=== PATIENT | female | born 1990 | race African-American/Black ===

== ENCOUNTER 2019-12-28 14:21 | Outpatient (REF) | payer OTHER, SELFPAY | END 2019-12-28 14:22 | disposition home or self-care (01) | LOC: HO.LAB 14:21 | PROVIDERS: Visit Provider Internal Medicine | DX: Z20.828 Contact with and (suspected) exposure to other viral communicable diseases (principal) | CPT/HCPCS: 87635 ==

== ENCOUNTER 2020-02-11 09:40 | Outpatient (REF) | payer OTHER, SELFPAY | END 2020-02-11 09:41 | disposition home or self-care (01) | LOC: HO.LAB 09:40 | PROVIDERS: Visit Provider Internal Medicine | DX: Z20.828 Contact with and (suspected) exposure to other viral communicable diseases (principal) | CPT/HCPCS: C9803; U0003 ==

== ENCOUNTER 2020-03-21 16:20 | Emergency (ER) | payer OTHER, SELFPAY ==
--- NOTE | 2020-03-21 | XR_ITS ---
EXAMINATION: XR KNEE, RIGHT CLINICAL INFORMATION: Injury. COMPARISON: None TECHNIQUE: Four views of the right knee. FINDINGS: Bones and soft tissues are normal. No fracture or joint effusion. Alignment is anatomic. Joint spaces are well maintained. No abnormal soft tissue calcification. XR/XR knee RT 4V IMPRESSION: Normal right knee.
[2020-03-21 16:35] VITALS: PULSE 91; RESP 16; TEMP 36.7; O2SAT 97; BMI 30.2
--- NOTE | 2020-03-21 19:54 | ED.LOWEXIN ---
HPI - Extremity Injury (Lower) General Chief Complaint: Extremity Injury, Lower Stated Complaint: FALL Time Seen by Provider: 03/21/20 19:54 History of Present Illness HPI Narrative: Patient complains of right knee pain since twisting it yesterday, he was she was fooling around with her and tried to lift him on her back and squat and felt a pain in her right knee, she did not fall down and there is no other injury no other complaints Related Data Previous Rx's Medication Instructions Recorded ibuprofen 600 mg PO Q6H PRN #20 tab 03/21/20 Allergies Allergy/AdvReac Type Severity Reaction Status Date / Time No Known Allergies Allergy Verified 03/21/20 19:05 [No Known Allergies*] Review of Systems Review of Systems: Positive for right knee pain Negatives are no numbness no weakness no paresthesias no dizziness no confusion no head injury no neck pain no back pain PMFSH Past Medical History Source: nursing notes reviewed Medical History (Updated 03/21/20 @ 20:06 by BIJU Jimenez) High cholesterol History of gastrectomy Social History Social History Smoked in Last 30 Days: No Use of substances other than those prescribed or required for medical reasons: No Advance Directives: No Advance Directives Information Provided: No Physical Exam Vital Signs: Vital Signs: Last Vital Signs Temp 98.1 F 03/21/20 16:35 Pulse 91 03/21/20 16:35 Resp 16 03/21/20 16:35 Pulse Ox 97 03/21/20 16:35 Body Mass Index 30.2 Patient is A&O x3, comfortable no acute distress Head is normocephalic atraumatic Neck is supple Respiratory no distress not Extremities the right knee is mildly swollen with medial tenderness, it extends to 180 and flexes past 90, she can walk with a limp, neurovascular intact distal no effusion no ligamentous laxity, quadriceps and patellar tendons appear intact, skin is normal no redness no warmth Neuro no focal deficit Skin no rash Course Course Course Narrative: Right knee x-ray was normal Patient is discharged to follow-up with orthopedics as needed Discharge Plan Discharge Clinical Impression: Right knee sprain Qualifiers: Encounter type: initial encounter Involved ligament of knee: unspecified ligament Qualified Code(s): S83.91XA - Sprain of unspecified site of right knee, initial encounter Patient Disposition: Home, Self-Care Additional Instructions: X-ray was normal Some sprains get better on their own and others do not so you may need to follow with orthopedist Apply ice Motrin as needed, return any concerns Prescriptions: New ibuprofen 600 mg tablet 600 mg PO Q6H PRN (Reason: pain) Qty: 20 RF: 0 Referrals: Jose A Pemberton MD [Physician] - 10 days (Right knee sprain)
--- NOTE | 2020-03-21 20:03 | PC.NURSE ---
NIMISHA WRAP APPLIED.
== END 2020-03-21 20:25 | disposition home or self-care (01) ==
PROVIDERS: Emergency Provider Emergency Medicine
DX: S83.91XA Sprain of unspecified site of right knee, initial encounter (principal); M25.561 Pain in right knee; X50.1XXA Overexertion from prolonged static or awkward postures, initial encounter; Y93.01 Activity, walking, marching and hiking; Y92.009 Unspecified place in unspecified non-institutional (private) residence as the place of occurrence of the external cause; Y99.9 Unspecified external cause status
CPT/HCPCS: 73564; 99283; 99284

== ENCOUNTER 2020-04-11 16:56 | Outpatient (REF) | payer OTHER, SELFPAY | END 2020-04-11 16:57 | disposition home or self-care (01) | LOC: HO.LAB 16:56 | PROVIDERS: Visit Provider Internal Medicine | DX: Z20.822 Contact with and (suspected) exposure to COVID-19 (principal) | CPT/HCPCS: 36415; C9803; U0003 ==

== ENCOUNTER 2020-09-22 07:19 | Outpatient (REF) | payer OTHER, SELFPAY ==
[2020-09-22 11:43] LABS: Hematocrit 38.3 % (37-47); Hemoglobin 12.4 g/dl (12.0-16.0); Mean Corpuscular HGB Conc 32.4 g/dl (31.0-35.0); Mean Corpuscular Hemoglobin 28.1 pg (27.0-33.0); Mean Corpuscular Volume 86.8 fL (80-98); Mean Platelet Volume 10.6 fL (9.4-12.3); Platelet Count 283 X10*3/uL (160-400); Red Blood Count 4.41 X10*6/uL (4.20-5.50); Red Cell Distribution Width 12.8 % (11.0-16.0); White Blood Count 5.3 X10*3/uL (4.8-10.8)
[2020-09-22 12:23] LABS: TSH reflex Free T4 1.15 uIU/mL (0.32-4.0)
[2020-09-22 12:24] LABS: Alanine Aminotransferase 13 U/L (0-31); Albumin Level 3.7 g/dL (3.5-5.0); Alkaline Phosphatase 50 U/L (39-117); Anion Gap 12 (12-20); Aspartate Amino Transferase 15 U/L (5-31); Bilirubin Total 0.6 mg/dL (0.0-1.0); Blood Urea Nitrogen 7 mg/dL (9-16); Calcium 8.3 mg/dL (8.4-10.2); Carbon Dioxide 25 mmol/L (22-29); Chloride 106 mmol/L (96-108); Cholesterol 271 mg/dL; Estimated Glomerular Filt Rate > 60; Glucose Fasting 81 mg/dL (60-99); HDL Cholesterol 50 mg/dL; Iron 123 mcg/dL (30-160); LDL Cholesterol Calculated 192 mg/dl; Percent Iron Saturation 31 % (15-50); Sodium 139 mmol/L (135-145); Total Iron Binding Capacity 393 mcg/dL (228-428); Total Protein 6.5 g/dL (6.5-8.0); Triglycerides 147 mg/dL; Unsaturated Iron Binding 270 ug/dL
== END 2020-09-22 07:20 | disposition home or self-care (01) ==
LOC: HO.HMGCLDS 07:19
PROVIDERS: PCP Internal Medicine; Visit Provider Internal Medicine
DX: Z00.00 Encounter for general adult medical examination without abnormal findings (principal); K21.9 Gastro-esophageal reflux disease without esophagitis
CPT/HCPCS: 36415; 80053; 80061; 83540; 84443; 85027

== ENCOUNTER 2021-05-25 10:45 | Outpatient (REF) | payer OTHER, SELFPAY ==
[2021-05-25 13:10] LABS: TSH reflex Free T4 1.49 uIU/mL (0.32-4.0)
[2021-05-25 13:33] LABS: Folate 5.5 ng/mL (> or = 4.0); Vitamin B12 260 pg/mL (200-900)
[2021-05-28 21:36] LABS: Transglutaminase Ab IgG <1.0 U/mL; Transglutaminase IgA <1.0 U/mL
[2021-05-29 07:07] LABS: Vitamin D 25-OH, D2 <4 ng/mL; Vitamin D 25-OH, D3 8 ng/mL; Vitamin D 25-OH, Total 8 ng/mL (30-100)
== END 2021-05-25 10:46 | disposition home or self-care (01) ==
LOC: HO.LAB 10:45
PROVIDERS: PCP Internal Medicine; Referring Provider Internal Medicine; Visit Provider Nurse Practitioner Family
DX: R10.11 Right upper quadrant pain (principal); R19.7 Diarrhea, unspecified; R14.0 Abdominal distension (gaseous); E55.9 Vitamin D deficiency, unspecified; K21.9 Gastro-esophageal reflux disease without esophagitis; K58.1 Irritable bowel syndrome with constipation
CPT/HCPCS: 36415; 82306; 82607; 82746; 84443; 86364; 99202

== ENCOUNTER 2021-06-26 08:41 | Outpatient (REF) | payer OTHER, SELFPAY | END 2021-06-26 08:42 | disposition home or self-care (01) | LOC: HO.LNP 08:41 | PROVIDERS: Visit Provider Nurse Practitioner Family | DX: K21.9 Gastro-esophageal reflux disease without esophagitis (principal) | CPT/HCPCS: 87338 ==

== ENCOUNTER → 2021-07-06 14:42 | Outpatient (BNVA) | payer OTHER, SELFPAY | PROVIDERS: PCP Internal Medicine; Referring Provider Internal Medicine; Visit Provider Nurse Practitioner Family | DX: K21.9 Gastro-esophageal reflux disease without esophagitis (principal); R10.13 Epigastric pain; Z90.3 Acquired absence of stomach [part of] | CPT/HCPCS: 99212 ==

== ENCOUNTER → 2021-07-26 13:01 | Outpatient (BNVA) | payer OTHER, SELFPAY | PROVIDERS: PCP Internal Medicine; Referring Provider Internal Medicine; Visit Provider Physician Assistant | DX: K21.9 Gastro-esophageal reflux disease without esophagitis (principal); E66.9 Obesity, unspecified; Z68.36 Body mass index [BMI] 36.0-36.9, adult; Z90.3 Acquired absence of stomach [part of] | CPT/HCPCS: 99202 ==

== ENCOUNTER 2021-07-27 12:13 | Day surgery (SDC) | payer OTHER, SELFPAY ==
--- NOTE | 2021-07-26 13:54 | HO.ANESPROP2 ---
Documented by User: Krissy Jj NP 07/26/21 13:54 HPI - Anesthesia Eval Consult details Narrative: 31yo F for Upper Endoscopy [facility]/p gastric [facility] Active Problems Active Problems: All Active Problems (Updated 07/26/21 @ 13:53 by Karlee Levi PA-C) Obesity (Acute) GERD (gastroesophageal reflux disease) (Acute) Annual physical exam (Acute) History of sleeve gastrectomy (Acute) Past Medical History Medical History Annual physical exam GERD (gastroesophageal reflux disease) High cholesterol History of gastrectomy Family History Family History Mother HTN (hypertension) Father Cancer Heart problem Diabetes Surgical History Surgical History History of sleeve gastrectomy Social History 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 If so, by whom?: No Are you DNR?: No Advance Directives: No Advance Directives Information Provided: Yes Recently lost weight without trying: No Nutrition Risks: No Nutritional Risk Patient : No Meds Allergies Allergy/AdvReac Type Severity Reaction Status Date / Time No Known Allergies Allergy Verified 07/06/21 14:59 [No Known Allergies*] Exam Exam Date and Time: July 26, 2021 1354 Assessment and Plan Assessment Anesthesia Assessment: Chart Reviewed Documented by User: Igor Gillespie MD 07/27/21 12:42 [facility] Past Medical History Medical History Annual physical exam GERD (gastroesophageal reflux disease) High cholesterol History of gastrectomy Patient : No Family History Family History Mother HTN (hypertension) Father Cancer Heart problem Diabetes Family history of problems with anesthesia: No Surgical History Surgical History History of sleeve gastrectomy History of Problems with Anesthesia: No Social History 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 If so, by whom?: No Are you DNR?: No Advance Directives: No Advance Directives Information Provided: Yes Recently lost weight without trying: No Nutrition Risks: No Nutritional Risk Patient : No Meds Allergies Allergy/AdvReac Type Severity Reaction Status Date / Time No Known Allergies Allergy Verified 07/06/21 14:59 [No Known Allergies*] Active Medications: nexium, sucralfate Exam Airway Mallampati Class: II TM Dist: >3cm Neck ROM: Full Loose/Missing/Broken Teeth: No Heart: ok Lungs: ok Assessment and Plan Final Anesthetic Review Family History of Problems with Anesthesia: No History of Problems with Anesthesia: No NPO: Yes ASA Class: III (Severe reflux) Final Preanesthetic Review: No Changes in Pt Med Stat, Meds/Allgs Chart Reviewed, Consent Obtained/Reviewed and Anes Risks/Benef Reviewed Patient Risk: Intermediate Procedure Risk: Intermediate Anesthetic Plan Anesthetic Plan: MAC: and Agree w/ Assess. and Plan Disposition: Standard PACU
[2021-07-27 12:12] VITALS: BMI 35.9
[2021-07-27 12:27] VITALS: BP 108/56; PULSE 83; RESP 18; TEMP 36.6; O2SAT 96
[2021-07-27] MEDS: Lactated Ringers 1,000 ML 100 ML IVCONT (12:40)
[2021-07-27 12:41] LABS: UPreg QC Valid YES; Urine Pregnancy NEGATIVE (NEGATIVE)
--- NOTE | 2021-07-27 13:02 | MHC.SHP ---
Pre-Procedural Eval Section A Date of Service: 07/27/21 The patient is an INPATIENT: No The History & Physical has been completed within 30 days and I have reviewed it.: Yes Section B Chief Complaint: reflux disease Details of Present Illness: GERD, epigastric pain Allergies: Allergies Allergy/AdvReac Type Severity Reaction Status Date / Time No Known Allergies Allergy Verified 07/06/21 14:59 [No Known Allergies*] Exam Surgical H&P Exam: Normal: Heart, Normal: Lungs and Normal: Extremities Plan Diagnosis/Plan: Unchanged I have reviewed the history and physical and performed a pertinent physical examination on my patient. No changes have occurred unless specified.
--- NOTE | 2021-07-27 13:08 | P.OP_ITS ---
Operative Note Operative Note Date of Service: 07/27/21 Narrative: Pre-op diagnosis: GERD, upper abdominal pain, status post Gastric sleeve in 2016 in [place] Post-op diagnosis:?other (Esophagitis, hiatal hernia, gastritis, status post Gastric sleeve surgery) Procedure: FLEXIBLE TRANSORAL UPPER GASTROINTESTINAL ENDOSCOPY WITH BIOPSIES Consent:?Indications for the procedure and potential complications of bleeding, perforation, reaction to medications and missed diagnosis were discussed with the patient and informed consent was obtained. Instrument:?Olympus GIF H 190 mid size upper endoscope Monitoring: Vital signs and clinical assessment, continuous EKG monitoring, Pulse oximetry, Carbon Dioxide monitoring and blood pressure monitoring were done throughout the procedure. Procedure:?The patient was placed in the left lateral decubitis position and pre-procedure medications were administered and a bite block was placed. The endoscope was inserted into the mouth and advanced under direct vision to the third part of duodenum. A careful inspection was made as the upper endoscope was withdrawn including a retroflexed examination of the proximal stomach; Findings and interventions are described below. Findings: Larynx:? Normal Esophagus: Presence of bile noted in the distal esophagus which was suctioned.? GE junction at 30 cms, small hiatal hernia 30 to 32 cms. Multiple 1-2 cms linear erosions at GE junction. No Massey's. Stomach: Normal gastric pouch. ? Mild gastric antral erythema. Biopsies were obtained. Grade 2 flap valve on retroflexed examination of the cardia. Duodenum: Normal bulb and descending duodenum Intervention: Biopsies as noted above Impression and Post Procedure Diagnosis: Endoscopy Findings: ESOPHAGUS: Presence of bile noted in the distal esophagus which was suctioned.? GE junction at 30 cms, small hiatal hernia 30 to 32 cms. Multiple 1-2 cms linear erosions at GE junction. No Massey's. STOMACH: Normal gastric pouch. ? Mild gastric antral erythema. Biopsies were obtained. Grade 2 flap valve on retroflexed examination of the cardia. Plan:? Await pathology results Patient has an appointment on 08/15/21 in the GI Clinic with Aiyana Bernstein FNP- [place] . Above findings were reviewed with the patient and GERD and Hiatal Hernia hand outs were given in the discharge area. Pt was advised to increase sucralfate to three times a day for bile reflux. COMPLICATONS OF SLEEVE GASTRECTOMY (FROM UPTODATE): Reflux???Gastroesophageal reflux after SG presents with classic symptoms such as burning pain, heartburn, and regurgitation. It can occur as an early and late complication. The first-line treatment is antireflux medical therapy. GERD unresponsive to antireflux medical therapy with no clear anatomic abnormalities, such as stoma stenosis or a hiatal hernia, can be effectively treated by conversion to RYGB Surgeon: Vito Chanel MD Anesthesia:?MAC (Dr Ramos) Was an Lawn And Garden Technician used for this Procedure?:?Yes Lawn And Garden Technician:?Anita Verduzco Estimated blood loss (mL):?0 Pathology:?other (A. GASTRIC BIOPSIES) Condition:?stable Disposition:?PACU
[2021-07-27 13:30] VITALS: BP 96/45; PULSE 71; RESP 16; TEMP 36.1; O2SAT 97
[2021-07-27 13:45] VITALS: BP 104/61; PULSE 67; RESP 16; TEMP 36.1; O2SAT 97
[2021-07-27 13:57] VITALS: BP 104/55; PULSE 77; RESP 16; TEMP 36.2; O2SAT 100
== END 2021-07-27 14:30 | disposition home or self-care (01) ==
PROVIDERS: Nurse Practitioner; PCP Internal Medicine; Visit Provider Internal Medicine Gastroenterology
PROC: 0DJ08ZZ Inspection of Upper Intestinal Tract, Via Natural or Artificial Opening Endoscopic (ICD-10-PCS; CPT 43235; principal; 2021-07-27 13:30)
DX: K21.9 Gastro-esophageal reflux disease without esophagitis (principal); K29.50 Unspecified chronic gastritis without bleeding; K20.80 Other esophagitis without bleeding; K44.9 Diaphragmatic hernia without obstruction or gangrene; E78.00 Pure hypercholesterolemia, unspecified; Z79.899 Other long term (current) drug therapy; Z90.3 Acquired absence of stomach [part of]; Z98.84 Bariatric surgery status
CPT/HCPCS: 43239; 81025; 88305; 88342; J2250; J3010

== ENCOUNTER 2021-08-13 09:18 | Outpatient (REF) | payer OTHER, SELFPAY ==
--- NOTE | ~2021-08-13 | FL_ITS ---
EXAMINATION: XR FLUOROSCOPY UPPER GI WITH AIR CLINICAL INFORMATION: Gastroesophageal reflux disease with esophagitis. COMPARISON: None TECHNIQUE: Routine upper GI air-contrast study was performed in upright and lying position. FINDINGS: Following oral administration of thick barium and effervescent granules there is normal propagation of bolus from the oral cavity through the pharynx, esophagus into stomach without any evidence of obstruction, narrowing or stricture. On placing patient supine and prone, the is reducible moderate stool hiatal hernia with significant gastroesophageal reflux into proximal esophagus and pharynx. The mucosal pattern of esophagus, stomach and the duodenal bulb and the sweep is normal. FLUOROSCOPY TIME: 1.8 minutes DOSE AREA PRODUCT: 32.8-3 uGy-m2 (microgray-meter squared) FL/FL upper GI w air IMPRESSION: Moderate reducible hiatal hernia with gastroesophageal reflux. Rest of the upper GI exam is unremarkable.
== END 2021-08-13 09:19 | disposition home or self-care (01) ==
LOC: HO.XRAY 09:18
PROVIDERS: Visit Provider Physician Assistant
DX: K21.9 Gastro-esophageal reflux disease without esophagitis (principal)
CPT/HCPCS: 74246

== ENCOUNTER → 2021-08-15 15:42 | Outpatient (BNVA) | payer OTHER, SELFPAY | PROVIDERS: PCP Internal Medicine; Referring Provider Internal Medicine; Visit Provider Nurse Practitioner Family | DX: K44.9 Diaphragmatic hernia without obstruction or gangrene (principal); K21.9 Gastro-esophageal reflux disease without esophagitis; K59.04 Chronic idiopathic constipation | CPT/HCPCS: 99212 ==

== ENCOUNTER → 2021-08-23 14:13 | Outpatient (BNVA) | payer OTHER, SELFPAY | PROVIDERS: PCP Internal Medicine; Referring Provider Internal Medicine; Visit Provider Physician Assistant | DX: E66.9 Obesity, unspecified (principal); Z68.35 Body mass index [BMI] 35.0-35.9, adult; Z98.84 Bariatric surgery status | CPT/HCPCS: 99212 ==

== ENCOUNTER 2021-09-04 09:03 | Day surgery (SDC) | payer OTHER, SELFPAY ==
--- NOTE | 2021-09-03 19:10 | MHC.SHP ---
Pre-Procedural Eval Section A Date of Service: 09/03/21 The patient is an INPATIENT: No The History & Physical has been completed within 30 days and I have reviewed it.: Yes Section B Chief Complaint: surgery status Relevant Family History (Specify if Yes): No Relevant Social History: None Present Medications: None Medical History: No relevant PMH History of Previous Operations: Relevant previous surgery/procedure and date(s) (lap sleeve gastrectomy) Allergies: Allergies Allergy/AdvReac Type Severity Reaction Status Date / Time No Known Allergies Allergy Verified 08/23/21 14:19 [No Known Allergies*] Review of Systems Sugical H&P ROS: Negative: Constitution, Cardiovascular, Respiratory, Neurological, Psychiatric, Hem-Onc, Allergic/Immunologic, Gastrointestinal, Genitourinary, Musculoskeletal, Integumentary, Endocrine and Eyes/Ears/Nose/Throat Exam Surgical H&P Exam: Normal: HEENT, Normal: Heart, Normal: Lungs, Normal: Extremities, Normal: Abdomen, Normal: Skin and Normal: Neurological Plan Diagnosis/Plan: Unchanged (EGD to assess GERD following sleeve gastrectomy. Risks of bleeding and perforation were discussed) I have reviewed the history and physical and performed a pertinent physical examination on my patient. No changes have occurred unless specified.
--- NOTE | 2021-09-04 09:09 | P.CONAN_ITS ---
[facility] Active Problems Active Problems: All Active Problems (Updated 08/13/21 @ 16:05 by Karlee Levi PA-C) Hiatal hernia (Acute) Obesity (Acute) GERD (gastroesophageal reflux disease) (Acute) Annual physical exam (Acute) History of sleeve gastrectomy (Acute) Past Medical History Medical History High cholesterol History of gastrectomy Family History Family History Mother HTN (hypertension) Father Cancer Heart problem Diabetes Family history of problems with anesthesia: No Surgical History Surgical History History of esophagogastroduodenoscopy History of Problems with Anesthesia: No Social History Social History 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:: , 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, 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 Alcohol intake frequency: holidays/special occasions only Alcohol type: beer Patient Tobacco Use Status: Never used Tobacco Use of substances other than those prescribed or required for medical reasons: No Are you DNR?: No Advance Directives: No Advance Directives Information Provided: Yes Meds Allergies Allergy/AdvReac Type Severity Reaction Status Date / Time No Known Allergies Allergy Verified 09/04/21 09:17 [No Known Allergies*] Exam Exam Date and Time: September 04, 2021 0909 Airway Mallampati Class: II TM Dist: >3cm Neck ROM: Full Partial: Lower Loose/Missing/Broken Teeth: Yes and Lower Heart: RRR Lungs: CTA Assessment and Plan Final Anesthetic Review Family History of Problems with Anesthesia: No History of Problems with Anesthesia: No ASA Class: II Final Preanesthetic Review: Meds/Allgs Chart Reviewed, Consent Obtained/Reviewed and Anes Risks/Benef Reviewed Patient Risk: Low Procedure Risk: Intermediate Anesthetic Plan Anesthetic Plan: MAC: Disposition: Standard PACU
[2021-09-04 09:27] VITALS: BMI 35.1
[2021-09-04 09:38] LABS: UPreg QC Valid YES; Urine Pregnancy NEGATIVE (NEGATIVE)
[2021-09-04 09:43] VITALS: BP 102/60; PULSE 88; RESP 15; TEMP 36.4; O2SAT 97
--- NOTE | 2021-09-04 09:53 | PM.OP ---
Brief Operative Note Date of Service: 09/04/21 Pre-op diagnosis: GERD Post-op diagnosis: same Procedure: PROCEDURE DATE: 09/04/2021 PREOPERATIVE DIAGNOSIS: GERD, s/p sleeve gastrectomy POSTOPERATIVE DIAGNOSIS: ?Same as above. 1) esophagitis grade 4, 2) distal gastritis, 3) bile reflux PROCEDURE: [id number] with biopsies Surgeon: ?Chandu Sheth M.D.. Ph.D. Assistant Professor Of History: None ? Anesthesia: IV sedation Estimated blood loss: ?Minimal FINDINGS AND PROCEDURE: ? OPERATIVE INDICATIONS: ?The patient is a 31 year old female known to me who underwent a laparoscopic sleeve gastrectomy a few years ago in [place]. The patient had inadequate weight loss so far.? The patient has been complaining of GERD. Based on this information I recommended an upper endoscopy to evaluate the patient's symptoms. Risks and complications of the surgery were discussed with the patientin advance particularly the possibility of perforation or bleeding that may require surgical intervention. The patient understood the risks and was in agreement with the plan. ? PROCEDURE: After informed consent was obtained by the patient, the patient was ?transferred to the Operating Room and was placed in the supine position.? After successful induction of IV sedation, a mouth block was inserted and the patient was placed in the left lateral decubitus position. An upper endoscopy was performed next, the oropharynx and esophagus appeared within the normal limits. There was no hiatal hernia. The z-line was irregular with tongues of gastric mucosa protruding into the esophagus in the entire circumference. Two biopsies were obtained from the distal esophagus 2-3 cm proximal to the GE junction and two additional biopsies from the GE junction. There was bile present in the distal esophagus and in the sleeve. The sleeve was entered. There was mild to moderate proximal redundancy near the GE junction. The remaining of the sleeve had normal caliber without evidence of stenosis. There was gastritis at distal antrum. There was no stricture or ulcer. Biopsies were obtained from the proximal sleeve as well as the distal antrum. No significant bleeding was noted from any of the biopsy sites. The scope was then advanced into the duodenum which appeared to be normal as well. At that point the duodenum ?and the sleeve were decompressed and the scope was withdrawn from the patient's mouth. The patient extubated and was transferred in stable condition to the Recovery Room for further care. I was present and performed all steps of the procedure. There were no residents to assist with this case. Chandu Sheth M.D., Ph.D. Surgeon: Rambo Sheth MD Anesthesia: MAC Was an Assistant Professor Of History used for this Procedure?: No Estimated blood loss (mL): 0 IV fluids (mL): 400 Urine output (mL): 0 (No Garcia to record) Pathology: other (1) GE junction x2, 2) distal esophagus x2, 3) proximal sleeve x1, 4) antrum x1) Condition: stable Disposition: PACU
[2021-09-04 10:46] VITALS: BP 94/47; PULSE 70; RESP 16; TEMP 36.4; O2SAT 98
[2021-09-04 11:01] VITALS: BP 105/56; PULSE 65; RESP 17; O2SAT 98
[2021-09-04 11:13] VITALS: BP 102/60; PULSE 65; RESP 17; TEMP 36.4; O2SAT 99
== END 2021-09-04 11:52 | disposition home or self-care (01) ==
PROVIDERS: Nurse Practitioner; PCP Internal Medicine; Visit Provider Surgery
DX: K21.9 Gastro-esophageal reflux disease without esophagitis (principal); Z98.84 Bariatric surgery status; Z90.3 Acquired absence of stomach [part of]; K29.60 Other gastritis without bleeding; K20.80 Other esophagitis without bleeding; E78.00 Pure hypercholesterolemia, unspecified; E66.9 Obesity, unspecified; Z68.35 Body mass index [BMI] 35.0-35.9, adult
CPT/HCPCS: 43239; 81025; 88305; 88342; J2250

== ENCOUNTER → 2021-09-18 14:00 | Outpatient (BNVA) | payer OTHER, SELFPAY | PROVIDERS: PCP Internal Medicine; Visit Provider Counselor Mental Health | DX: F43.20 Adjustment disorder, unspecified (principal); Z98.84 Bariatric surgery status | CPT/HCPCS: 90791 ==

== ENCOUNTER 2021-09-28 08:02 | Emergency (ER) | payer OTHER, SELFPAY ==
--- NOTE | ~2021-09-28 | XR_ITS ---
EXAMINATION: CR X-RAY FOOT AND ANKLE RIGHT CLINICAL INFORMATION: Right foot and ankle pain and swelling. COMPARISON: None TECHNIQUE: 3 views of the right foot and ankle were obtained. FINDINGS: Mild soft tissue swelling is seen most pronounced laterally. The ankle joint and mortise are intact. There is no acute fracture or dislocation. The tarsal bones are normally aligned. The metatarsals and phalanges are intact. XR/XR ankle RT 2V IMPRESSION: Mild soft tissue swelling, most pronounced laterally. No acute osseous abnormality.
--- NOTE | ~2021-09-28 | XR_ITS ---
EXAMINATION: CR X-RAY FOOT AND ANKLE RIGHT CLINICAL INFORMATION: Right foot and ankle pain and swelling. COMPARISON: None TECHNIQUE: 3 views of the right foot and ankle were obtained. FINDINGS: Mild soft tissue swelling is seen most pronounced laterally. The ankle joint and mortise are intact. There is no acute fracture or dislocation. The tarsal bones are normally aligned. The metatarsals and phalanges are intact. XR/XR foot RT min 3V IMPRESSION: Mild soft tissue swelling, most pronounced laterally. No acute osseous abnormality.
[2021-09-28 08:23] VITALS: BP 95/35; PULSE 74; RESP 18; TEMP 36.7; O2SAT 98; BMI 34.9
--- NOTE | 2021-09-28 08:39 | ED_ITS ---
HPI - Extremity Injury (Lower) General Chief Complaint: Extremity Injury, Lower Stated Complaint: R ankle pain Time Seen by Provider: 09/28/21 08:39 Source: patient Mode of arrival: ambulatory Limitations: no limitations History of Present Illness HPI Narrative: Patient is a 31 year old female presenting to the emergency department today with right foot and ankle pain. Patient states that she attempted to get up when her right foot and ankle were asleep and she heard a loud pop. Patient denies any dizziness, lightheadedness, abdominal pain, nausea, vomiting, fever, chills, blurry vision, double vision, loss of vision, chest pain, difficulty breathing, shortness of breath, back pain, night sweats, pain with urination, increased urinary frequency, increased urinary urgency, blood in her urine or stool, syncope or a near syncopal episode, bowel incontinence, bladder incontinence, bowel retention, bladder retention, or any other complaints at this time. MD complaint: ankle injury and foot injury Onset (ago): hour(s) Place: home Severity: mild Severity scale (1-10): 2 Exacerbating factors: nothing Other symptoms: none Related Data Previous Rx's Medication Instructions Recorded esomeprazole magnesium 40 mg 40 mg PO DAILY #30 caps 05/25/21 capsule,delayed release (Nexium) sennosides 8.6 mg tablet (Natural 17.2 mg PO BEDTIME constipation 05/25/21 Senna Laxative) #60 tabs cholecalciferol (vitamin D3) 1,250 1,250 mcg PO QWEEK #13 caps 06/29/21 mcg (50,000 unit) capsule sucralfate 1 gram tablet 1 g PO TID 90 days #270 tabs 07/27/21 polyethylene glycol 3350 17 gram 17 g PO DAILY #100 ea 08/15/21 oral powder packet (Miralax) multivitamin 1 tab PO DAILY #30 tabs 08/23/21 Allergies Allergy/AdvReac Type Severity Reaction Status Date / Time No Known Allergies Allergy Verified 09/10/21 12:45 [No Known Allergies*] Review of Systems Constitutional: Constitutional: Reports no additional constitutional complaints, Denies chills, Denies fever(s) and Denies night sweats Eyes: Eyes: Reports no additional eye complaints, Denies blurry vision, Denies change in vision, Denies diplopia, Denies eye discharge, Denies loss of vision and Denies eye pain ENT: Denies dizziness Cardiovascular: Cardiovascular: Reports no additional cardiovascular complaints, Denies chest pain, Denies lightheadedness, Denies Loss of Consciousness and Denies dyspnea Respiratory: Respiratory: Reports no additional respiratory complaints and Denies dyspnea Gastrointestinal: Gastrointestinal: Reports no additional gastrointestinal complaints, Denies abdominal pain, Denies melena, Denies hematochezia, Denies change in bowel habits and Denies change in stool character Genitourinary: Genitourinary: Denies hematuria, Denies urinary frequency, Denies dysuria, Denies urinary incontinence, Denies urinary hesitancy and Denies urinary urgency Musculoskeletal: Musculoskeletal: Reports no additional musculoskeletal complaints, Denies numbness and Denies tingling Comments: right foot and ankle pain Neurologic: Denies dizziness, Denies loss of vision, Denies numbness and Denies tingling Psychiatric: Psychiatric: Reports no additional psychiatric complaints Endocrine: Endocrine: Reports no additional endocrine complaints Hematologic/Lymphatic: Hematologic/Lymphatic: Reports no additional hematologic/lymphatic complaints Allergic/Immunologic: Allergic/Immunologic: Reports no additional allergic/immunologic complaints [facility] Past Medical History Attestation statement: The following information was validated with the patient. 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 Alcohol intake: current Alcohol intake frequency: holidays/special occasions only Alcohol type: beer Patient Tobacco Use Status: Never used Tobacco Advance Directives: Yes Advance Directives Information Provided: Yes Advance Directives on File: No Physical Exam Vital Signs: Vital Signs: Last Vital Signs Temp 98.0 F 09/28/21 08:23 Pulse 74 09/28/21 08:23 Resp 18 09/28/21 08:23 BP 95/35 L 09/28/21 08:23 Pulse Ox 98 09/28/21 08:23 BMI result Body Mass Index 34.9 Const: General: cooperative, no acute distress, alert and awake Nutritional Appearance: well nourished Orientation/consciousness: patient oriented x3 Limitations: no limitations HEENT: Head: Yes normal to inspection and Yes atraumatic Ears: hearing grossly normal bilaterally and external ears normal General nose exam: Normal external nose present, no nasal discharge noted and no epistaxis Face and sinus: Yes normal facial exam, No abrasion and No laceration Mouth: Normal oral and palatal mucosa present, no drooling and no muffled voice Eyes: General: appearance normal, both eyes and all related structures Periorbital: periorbital findings normal Eyelids: Yes eyelids normal Conjunctivae: conjunctivae normal Pupils: Equal, round and reactive pupils present EOM: EOMs intact bilaterally Neck: Neck: Yes normal visual inspection, Yes full ROM and Yes no lymphadenopathy Chest: Chest palpation & inspection: normal inspection of the chest Resp: Effort & Inspection: normal respiratory effort and able to speak in complete sentences Auscultation: clear to auscultation bilaterally Cardio: Rate: regular rate Rhythm: regular rhythm GI: Inspection: Yes normal to inspection Neuro: General: patient oriented x3 and moves all extremities Cranial nerves: Yes Equal, round and reactive pupils present Cognition (Neuro): normal cognition Motor exam (neuro): 5/5 motor strength present throughout Sensory Exam: Normal double simultaneous stimulation for sensation Coordination: [id number] test normal Extrem: General: Yes normal to inspection, Yes full ROM and Yes capillary refill normal Psych: Appearance: grossly normal Mental Status: mental status grossly normal Affect: normal affect Attitude: cooperative Thought process: Normal thought process present Thought content: Normal thought content present Insight: Good insight present (Psych) MDM - Extremity Injury (Lower) MDM Narrative Medical decision making narrative: Patient is a 31 year old female presenting to the emergency department today with right ankle pain. Patient's physical exam was unremarkable. Patient's right foot and right ankle x-rays showed no acute process. I explained my physical exam findings as well as all test results to the patient. I answered all questions asked by the patient. Patient's right foot and ankle were wrapped in an kip wrap without incident. I stressed the importance of the patient taking her medication as prescribed. I stressed the importance of the patient following up with her primary care provider and if pain persists, with an orthopedic provider. Patient was offered crutches and refused them. I stressed the importance of the patient returning to the emergency department immediately if her symptoms were to worsen or if she were to develop any dizziness, shortness of breath, difficulty breathing, chest pain, blurry vision, loss of vision, nausea, vomiting, abdominal pain, fever, chills, back pain, or any other complaints. Patient verbalized agreement and understanding with this treatment plan and discharge. Differential Diagnosis Differential diagnosis: Likely ankle sprain and strain Medical Records Attestation: I reviewed the patient's medical records. Imaging Data Right foot and right ankle x-ray: Attestation: I personally reviewed and interpreted this imaging study as follows: My impression: No acute fracture. Radiologist's impression: EXAMINATION: CR X-RAY FOOT AND ANKLE RIGHT CLINICAL INFORMATION: Right foot and ankle pain and swelling.? COMPARISON: None? TECHNIQUE: 3 views of the right foot and ankle were obtained.? FINDINGS: Mild soft tissue swelling is seen most pronounced laterally. The ankle joint and mortise are intact. There is no acute fracture or dislocation. The tarsal bones are normally aligned. The metatarsals and phalanges are intact. XR/XR foot RT min 3V IMPRESSION: Mild soft tissue swelling, most pronounced laterally. No acute osseous abnormality. Dictated By: Stone Davalos MD Signed By: Electronically signed by Stone Davalos MD 09/28/21 0923 Procedures Orthopedic Splinting/Casting Injury #1: Side: right Lower Extremity Injury Location: ankle and foot Lower Extremity Immobilizer: Kip wrap Discharge Plan Discharge Clinical Impression: Ankle sprain Patient Disposition: Home, Self-Care Instructions: Ankle Sprain (ED) Additional Instructions: Follow up with your primary care provider. Return to the emergency department immediately if your symptoms worsen or if you develop any dizziness, shortness of breath, difficulty breathing, chest pain, blurry vision, loss of vision, nausea, vomiting, abdominal pain, fever, chills, back pain, or any other complaints. Prescriptions: No Action cholecalciferol (vitamin D3) 1,250 mcg (50,000 unit) capsule 1,250 mcg PO QWEEK Qty: 13 0RF sucralfate 1 gram tablet 1 g PO TID 90 Days Qty: 270 1RF esomeprazole magnesium [Nexium] 40 mg capsule,delayed release(DR/EC) 40 mg PO DAILY Qty: 30 5RF sennosides [Natural Senna Laxative] 8.6 mg tablet 17.2 mg PO BEDTIME Qty: 60 1RF polyethylene glycol 3350 [Miralax] 17 gram powder in packet 17 g PO DAILY Qty: 100 3RF multivitamin Tablet 1 tab PO DAILY Qty: 30 5RF Ref[place]: [facility] [place] [facility] [place] Group] Marianna Aguirre MD [Primary Care Provider] - Interventions: ED Discharge Assessment Last Done: 09/28/21 09:57 Print Language: Malaysian
== END 2021-09-28 10:02 | disposition home or self-care (01) ==
PROVIDERS: Emergency Provider Emergency Medicine; PCP Internal Medicine
DX: S93.401A Sprain of unspecified ligament of right ankle, initial encounter (principal); X50.1XXA Overexertion from prolonged static or awkward postures, initial encounter; Y93.89 Activity, other specified; Y92.039 Unspecified place in apartment as the place of occurrence of the external cause; Y99.9 Unspecified external cause status
CPT/HCPCS: 73600; 73630; 99283

== ENCOUNTER → 2021-10-01 14:19 | Outpatient (BNVA) | payer OTHER, SELFPAY | PROVIDERS: Visit Provider Dietitian, Registered | DX: E66.9 Obesity, unspecified (principal); Z68.36 Body mass index [BMI] 36.0-36.9, adult; Z98.84 Bariatric surgery status; Z71.3 Dietary counseling and surveillance | CPT/HCPCS: 97802 ==

== ENCOUNTER → 2021-10-09 09:00 | Outpatient (BNVA) | payer OTHER, SELFPAY | PROVIDERS: PCP Internal Medicine; Visit Provider Counselor Mental Health | DX: F43.20 Adjustment disorder, unspecified (principal); Z90.3 Acquired absence of stomach [part of] | CPT/HCPCS: 90834 ==

== ENCOUNTER 2021-10-16 09:53 | Outpatient (REF) | payer OTHER, SELFPAY ==
--- NOTE | 2021-10-16 10:06 | ECG_ITS ---
Test Reason : E66.01 Blood Pressure : / mmHG Vent. Rate : 061 BPM Atrial Rate : 061 BPM P-R Int : 152 ms QRS Dur : 080 ms QT Int : 434 ms P-R-T Axes : 055 055 045 degrees QTc Int : 436 ms Normal sinus rhythm with sinus arrhythmia Normal ECG When compared with ECG of 30-NOV-2018 21:10, No significant change was found Referred By: Rambo Sheth Electronically Signed By:AISHWARYA CHINO
[2021-10-16 10:21] LABS: MANUAL DIFF FLAG NO
[2021-10-16 10:46] LABS: Basophils Percent Auto 0.3 % (0-2); Eosinophils Absolute Auto 0.1 X10*3/uL (0.0-0.4); Eosinophils Percent Auto 0.8 % (0-4); Hematocrit 35.9 % (37.0-47.0); Hemoglobin 11.8 g/dl (12.0-16.0); Imm Gran Abs Auto 0.02 X10*3/uL (0.00-0.03); Imm Gran Pct Auto 0.3 % (0.0-0.4); Lymphocytes Absolute Auto 1.9 X10*3/uL (1.2-4.9); Lymphocytes Percent Auto 28.7 % (20-40); Mean Corpuscular HGB Conc 32.9 g/dl (31.0-35.0); Mean Corpuscular Hemoglobin 27.4 pg (27.0-33.0); Mean Corpuscular Volume 83.3 fL (80.0-98.0); Mean Platelet Volume 10.4 fL (9.4-12.3); Monocytes Absolute Auto 0.4 X10*3/uL (0.1-1.2); Monocytes Percent Auto 6.6 % (2-11); Neutrophils Absolute Auto 4.1 x10*3/uL (2.0-8.3); Neutrophils Percent Auto 63.3 % (45-73); Platelet Count 269 X10*3/uL (160-400); Red Blood Count 4.31 X10*6/uL (4.20-5.50); Red Cell Distribution Width 13.3 % (11.0-16.0); White Blood Count 6.5 X10*3/uL (4.8-10.8)
[2021-10-16 10:47] LABS: Estimated Average Glucose 91 mg/dL; Hemoglobin A1c % 4.8 %
[2021-10-16 11:29] LABS: Alanine Aminotransferase 16 U/L (0-31); Alkaline Phosphatase 55 U/L (39-117); Anion Gap 11 (12-20); Aspartate Amino Transferase 16 U/L (5-31); Bilirubin Total 0.6 mg/dL (0.0-1.0); Blood Urea Nitrogen 11 mg/dL (9-16); Calcium 8.6 mg/dL (8.4-10.2); Carbon Dioxide 26 mmol/L (22-29); Chloride 105 mmol/L (96-108); Cholesterol 294 mg/dL; Estimated Glomerular Filt Rate > 60; Glucose Random 92 mg/dL (60-115); HDL Cholesterol 49 mg/dL; Iron 59 mcg/dL (30-160); LDL Cholesterol Calculated 226 mg/dl; Percent Iron Saturation 15 % (15-50); Potassium 4.2 mmol/L (3.3-5.1); Sodium 138 mmol/L (135-145); Total Iron Binding Capacity 397 mcg/dL (228-428); Total Protein 6.7 g/dL (6.5-8.0); Triglycerides 97 mg/dL; Unsaturated Iron Binding 338 ug/dL
[2021-10-16 11:48] LABS: Folate 7.3 ng/mL (> or = 4.0); Vitamin B12 202 pg/mL (200-900)
[2021-10-16 11:54] LABS: Ferritin 9 ng/mL (10-122); Insulin 11 uU/mL (2-29); Vitamin D 25-OH Total 54.5 ng/mL (>30)
[2021-10-17 14:23] LABS: Calcium (PTHI) 8.7 mg/dL (8.6-10.2); PTHI 31 pg/mL (16-77)
[2021-10-20 06:06] LABS: Zinc 61 mcg/dL (60-130)
[2021-10-21 11:42] LABS: Vitamin B1 10 nmol/L (8-30)
[2021-10-22 17:36] LABS: Vitamin A 37 mcg/dL (38-98)
== END 2021-10-16 09:54 | disposition home or self-care (01) ==
LOC: HO.XRAY 09:53
PROVIDERS: PCP Internal Medicine; Visit Provider Physician Assistant
DX: E66.9 Obesity, unspecified (principal); Z68.35 Body mass index [BMI] 35.0-35.9, adult; K21.9 Gastro-esophageal reflux disease without esophagitis; K44.9 Diaphragmatic hernia without obstruction or gangrene; Z90.3 Acquired absence of stomach [part of]; Z71.3 Dietary counseling and surveillance
CPT/HCPCS: 36415; 80053; 80061; 82306; 82607; 82728; 82746; 83036; 83525; 83540; 83970; 84425; 84443; 84590; 84630; 85025; 86140; 93005; 99212

== ENCOUNTER 2021-11-01 08:16 | Outpatient (REF) | payer OTHER, SELFPAY ==
--- NOTE | ~2021-11-01 | XR_ITS ---
EXAMINATION: XR CHEST CLINICAL INFORMATION: Obesity, unspecified COMPARISON: None TECHNIQUE: 2 views of the chest were obtained. FINDINGS: The mediastinum, nixon, vasculature, lungs and visualized pleural margins are within normal limits. XR/XR chest 2V IMPRESSION: No acute chest disease.
--- NOTE | ~2021-11-01 | US_ITS ---
EXAMINATION: US COMPLETE ABDOMEN WITH LIVER ELASTOGRAPHY CLINICAL INFORMATION: Obesity COMPARISON: None TECHNIQUE: Real-time imaging of the abdominal viscera. Noninvasive ultrasound liver fibrosis assessment is performed using Adam ElastPQ point quantification shear wave elastography (2D-SWE) with a C5-2 MHz transducer. Multiple elastography samples are obtained. FINDINGS: PANCREAS: Normal. The visualized pancreatic head and body are normal in appearance. The remainder of the pancreas is obscured from visualization by the overlying bowel gas. ABDOMINAL AORTA: The proximal, middle, and distal aortic segments are normal in caliber. INFERIOR VENA CAVA: Visualized portions are normal. LIVER: Normal. The liver demonstrates normal size, contour and echogenicity. No focal lesion or intrahepatic biliary duct dilatation. The right lobe measures 13.5 cm in length. The left lobe measures 9.3 cm in length. Portal flow is hepatopedal. Shear wave liver elastography median stiffness is 1.5 m/s (reference: normal median stiffness is 1.3 m/s or less). IQR/median stiffness to assess sampling precision is 0.21 (reference: good quality data set is IQR/median stiffness of 0.15 or less). GALLBLADDER: Normal. The gallbladder is physiologically distended without evidence of stones, sludge, polyps, wall thickening or pericholecystic fluid. COMMON BILE DUCT: Normal in caliber measuring 0.36 cm in diameter. RIGHT KIDNEY: Normal. No hydronephrosis. No renal calculi or focal parenchymal lesions. The kidney measures 10.4 cm in maximum dimension. LEFT KIDNEY: Normal. No hydronephrosis. No renal calculi or focal parenchymal lesions. The kidney measures 11.5 cm in maximum dimension. SPLEEN: Normal. The spleen measures 11.2 cm in maximum dimension. FREE FLUID: None US/US abdomen comp w elastography IMPRESSION: 1. Unremarkable complete abdomen ultrasound. 2. Liver elastography: Median liver stiffness 1.5 m/s suggestive of cACLD (ruled out). REFERENCE: Society of Radiologists in Ultrasound Liver Stiffness Thresholds (2020): LIVER STIFFNESS THRESHOLDS: *Liver Stiffness equal or less than 1.3 m/s: High probability of being normal. *Liver Stiffness less than 1.7 m/s: In the absence of other known clinical signs, rules out compensated advanced chronic liver disease. *Liver Stiffness 1.7-2.1 m/s: Suggestive of compensated advanced chronic liver disease but need further test for confirmation. *Liver Stiffness over 2.1 m/s: Rules in compensated advanced chronic liver disease. *Liver Stiffness over 2.4 m/s: Suggestive of clinically significant portal hypertension. QUALITY OF DATA SET: *IQR/Median value equal or less than 0.15 implies a quality data set. *IQR/Median value over 0.15 implies a poor quality data set. SIGNIFICANT CHANGE FROM PRIOR EXAM: Significant change if liver stiffness measurement is 10% or greater from prior exam. OTHER CONSIDERATIONS: The stage of liver fibrosis may be overestimated in the setting of acute hepatitis, liver inflammation, elevated liver function tests, hepatic vascular congestion, obstructive cholestasis, non-fasting state, and infiltrative diseases such as amyloidosis and lymphoma. In some patients with NAFLD, the liver stiffness thresholds for compensated advanced chronic liver disease may be lower. In causes other than viral hepatitis and NAFLD, liver stiffness thresholds are not well established.
== END 2021-11-01 08:17 | disposition home or self-care (01) ==
LOC: HO.US 08:16
PROVIDERS: Visit Provider Surgery
DX: E66.9 Obesity, unspecified (principal); K21.9 Gastro-esophageal reflux disease without esophagitis; K44.9 Diaphragmatic hernia without obstruction or gangrene
CPT/HCPCS: 71046; 76705; 76981; 97803

== ENCOUNTER → 2021-12-07 09:27 | Outpatient (BNVA) | payer OTHER, SELFPAY | PROVIDERS: PCP Internal Medicine; Visit Provider Nurse Practitioner Family | DX: K59.04 Chronic idiopathic constipation (principal); K21.9 Gastro-esophageal reflux disease without esophagitis; Z79.899 Other long term (current) drug therapy | CPT/HCPCS: 99212 ==

== ENCOUNTER → 2022-05-30 09:51 | Outpatient (BNVA) | payer OTHER, SELFPAY | PROVIDERS: PCP Internal Medicine; Visit Provider Nurse Practitioner Family | DX: K21.9 Gastro-esophageal reflux disease without esophagitis (principal); K58.0 Irritable bowel syndrome with diarrhea | CPT/HCPCS: 99212 ==

== ENCOUNTER → 2022-06-11 13:33 | Outpatient (BNVA) | payer OTHER, SELFPAY | PROVIDERS: PCP Internal Medicine; Visit Provider Physician Assistant Surgical | DX: E66.9 Obesity, unspecified (principal); Z68.36 Body mass index [BMI] 36.0-36.9, adult | CPT/HCPCS: 99212 ==

== ENCOUNTER 2022-06-19 08:57 | Outpatient (REF) | payer OTHER, SELFPAY ==
[2022-06-19 09:22] LABS: MANUAL DIFF FLAG NO
[2022-06-19 09:36] LABS: Basophils Percent Auto 0.4 % (0-2); Eosinophils Absolute Auto 0.1 X10*3/uL (0.0-0.4); Eosinophils Percent Auto 1.4 % (0-4); Hematocrit 35.9 % (37.0-47.0); Hemoglobin 11.8 g/dl (12.0-16.0); Imm Gran Abs Auto 0.01 X10*3/uL (0.00-0.03); Imm Gran Pct Auto 0.2 % (0.0-0.4); Lymphocytes Absolute Auto 1.7 X10*3/uL (1.2-4.9); Lymphocytes Percent Auto 29.5 % (20-40); Mean Corpuscular HGB Conc 32.9 g/dl (31.0-35.0); Mean Corpuscular Hemoglobin 26.9 pg (27.0-33.0); Mean Corpuscular Volume 81.8 fL (80.0-98.0); Mean Platelet Volume 9.7 fL (9.4-12.3); Monocytes Absolute Auto 0.3 X10*3/uL (0.1-1.2); Monocytes Percent Auto 4.8 % (2-11); Neutrophils Absolute Auto 3.6 x10*3/uL (2.0-8.3); Neutrophils Percent Auto 63.7 % (45-73); Platelet Count 279 X10*3/uL (160-400); Red Blood Count 4.39 X10*6/uL (4.20-5.50); White Blood Count 5.7 X10*3/uL (4.8-10.8)
[2022-06-19 09:53] LABS: Estimated Average Glucose 100 mg/dL; Hemoglobin A1c % 5.1 %
[2022-06-19 10:03] LABS: Alanine Aminotransferase 22 U/L (0-31); Albumin Level 3.8 g/dL (3.5-5.0); Alkaline Phosphatase 65 U/L (39-117); Anion Gap 11 (12-20); Aspartate Amino Transferase 18 U/L (5-31); Bilirubin Total 0.6 mg/dL (0.0-1.0); Blood Urea Nitrogen 7 mg/dL (9-16); C Reactive Protein 0.45 mg/dL (< or = 0.50); Calcium 8.4 mg/dL (8.4-10.2); Carbon Dioxide 27 mmol/L (22-29); Chloride 106 mmol/L (96-108); Cholesterol 296 mg/dL; Estimated Glomerular Filt Rate > 60; Glucose Random 90 mg/dL (60-115); HDL Cholesterol 40 mg/dL; Iron 43 mcg/dL (30-160); LDL Cholesterol Calculated 234 mg/dl; Percent Iron Saturation 13 % (15-50); Potassium 3.9 mmol/L (3.3-5.1); Sodium 140 mmol/L (135-145); Total Iron Binding Capacity 328 mcg/dL (228-428); Total Protein 6.4 g/dL (6.5-8.0); Triglycerides 113 mg/dL; Unsaturated Iron Binding 285 ug/dL
[2022-06-19 10:38] LABS: Insulin 6 uU/mL (2-29)
[2022-06-19 10:40] LABS: Ferritin 9 ng/mL (10-122); Folate 8.9 ng/mL (> or = 4.0); TSH reflex Free T4 1.54 uIU/mL (0.32-4.0); Vitamin B12 332 pg/mL (200-900); Vitamin D 25-OH Total 25.6 ng/mL (>30)
[2022-06-21 14:04] LABS: Calcium (PTHI) 8.3 mg/dL (8.6-10.2); PTHI 53 pg/mL (16-77)
[2022-06-24 03:14] LABS: Zinc 74 mcg/dL (60-130)
[2022-06-25 23:33] LABS: Vitamin B1 <6 nmol/L (8-30)
[2022-06-26 23:33] LABS: Vitamin A 33 mcg/dL (38-98)
== END 2022-06-19 08:58 | disposition home or self-care (01) ==
LOC: HO.XRAY 08:57
PROVIDERS: PCP Internal Medicine; Visit Provider Physician Assistant Surgical
DX: E66.9 Obesity, unspecified (principal); K21.9 Gastro-esophageal reflux disease without esophagitis; K44.9 Diaphragmatic hernia without obstruction or gangrene; Z98.84 Bariatric surgery status
CPT/HCPCS: 36415; 80053; 80061; 82306; 82607; 82728; 82746; 83036; 83525; 83540; 83970; 84425; 84443; 84590; 84630; 85025; 86140

== ENCOUNTER → 2022-06-24 11:30 | Outpatient (BNVA) | payer OTHER, SELFPAY | PROVIDERS: PCP Internal Medicine; Visit Provider Dietitian, Registered | DX: E66.9 Obesity, unspecified (principal); Z68.36 Body mass index [BMI] 36.0-36.9, adult | CPT/HCPCS: 97803 ==

== ENCOUNTER → 2022-07-03 11:27 | Outpatient (BNVA) | payer OTHER, SELFPAY | PROVIDERS: PCP Internal Medicine; Referring Provider Internal Medicine; Visit Provider Physician Assistant Surgical | DX: E66.9 Obesity, unspecified (principal); Z68.35 Body mass index [BMI] 35.0-35.9, adult | CPT/HCPCS: 99212 ==

== ENCOUNTER → 2022-07-04 10:12 | Outpatient (BNVA) | payer OTHER, SELFPAY | PROVIDERS: PCP Internal Medicine; Visit Provider Counselor Mental Health ==

== ENCOUNTER 2022-07-05 10:36 | Outpatient (REF) | payer OTHER, SELFPAY ==
--- NOTE | ~2022-07-05 | US_ITS ---
EXAMINATION: US COMPLETE ABDOMEN WITH LIVER ELASTOGRAPHY CLINICAL INFORMATION: Obesity COMPARISON: None available. TECHNIQUE: Real-time imaging of the abdominal viscera. Noninvasive ultrasound liver fibrosis assessment is performed using Adam ElastPQ point quantification shear wave elastography (2D-SWE) with a C5-2 MHz transducer. Multiple elastography samples are obtained. FINDINGS: PANCREAS: The visualized pancreatic head and body are normal in appearance. The tail of the pancreas is obscured from visualization by the overlying bowel gas. ABDOMINAL AORTA: The proximal, middle, and distal aortic segments are normal in caliber. INFERIOR VENA CAVA: Visualized portions are normal. LIVER: The liver demonstrates normal size, contour and increased echogenicity. No focal lesion or intrahepatic biliary duct dilatation. The right lobe measures 13.6 cm in length. The left lobe measures 10.6 cm in length. Portal flow is hepatopedal. Shear wave liver elastography median stiffness is 1.21 m/s (reference: normal median stiffness is 1.3 m/s or less). IQR/median stiffness to assess sampling precision is 0.02 (reference: good quality data set is IQR/median stiffness of 0.15 or less). GALLBLADDER: Normal. The gallbladder is physiologically distended without evidence of stones, sludge, polyps, wall thickening or pericholecystic fluid. COMMON BILE DUCT: Normal in caliber measuring 0.6 cm in diameter. RIGHT KIDNEY: Normal. No hydronephrosis. No renal calculi or focal parenchymal lesions. The kidney measures 10.6 cm in maximum dimension. LEFT KIDNEY: There is an anechoic cyst in the upper pole measuring 0.9 x 0.8 cm. No hydronephrosis. No renal calculi or focal parenchymal lesions. The kidney measures 10.9 cm in maximum dimension. SPLEEN: Normal. The spleen measures 11.3 cm in maximum dimension. FREE FLUID: None. US/US abdomen comp w elastography IMPRESSION: 1. Mild hepatic steatosis without focal lesion. Anechoic 0.9 cm cyst upper pole left kidney. 2. Liver elastography: Median liver stiffness measures 1.21 m/s corresponding to high probability normal. REFERENCE: Society of Radiologists in Ultrasound Liver Stiffness Thresholds (2020): LIVER STIFFNESS THRESHOLDS: *Liver Stiffness equal or less than 1.3 m/s: High probability of being normal. *Liver Stiffness less than 1.7 m/s: In the absence of other known clinical signs, rules out compensated advanced chronic liver disease. *Liver Stiffness 1.7-2.1 m/s: Suggestive of compensated advanced chronic liver disease but need further test for confirmation. *Liver Stiffness over 2.1 m/s: Rules in compensated advanced chronic liver disease. *Liver Stiffness over 2.4 m/s: Suggestive of clinically significant portal hypertension. QUALITY OF DATA SET: *IQR/Median value equal or less than 0.15 implies a quality data set. *IQR/Median value over 0.15 implies a poor quality data set. SIGNIFICANT CHANGE FROM PRIOR EXAM: Significant change if liver stiffness measurement is 10% or greater from prior exam. OTHER CONSIDERATIONS: The stage of liver fibrosis may be overestimated in the setting of acute hepatitis, liver inflammation, elevated liver function tests, hepatic vascular congestion, obstructive cholestasis, non-fasting state, and infiltrative diseases such as amyloidosis and lymphoma. In some patients with NAFLD, the liver stiffness thresholds for compensated advanced chronic liver disease may be lower. In causes other than viral hepatitis and NAFLD, liver stiffness thresholds are not well established.
== END 2022-07-05 10:37 | disposition home or self-care (01) ==
LOC: HO.US 10:36
PROVIDERS: PCP Internal Medicine; Visit Provider Physician Assistant Surgical
DX: Z01.818 Encounter for other preprocedural examination (principal); E66.9 Obesity, unspecified; K44.9 Diaphragmatic hernia without obstruction or gangrene; Z98.84 Bariatric surgery status
CPT/HCPCS: 76705; 76981

== ENCOUNTER → 2022-07-25 11:00 | Outpatient (BNVA) | payer OTHER, SELFPAY | PROVIDERS: PCP Internal Medicine; Visit Provider Dietitian, Registered | DX: E66.9 Obesity, unspecified (principal); Z68.35 Body mass index [BMI] 35.0-35.9, adult | CPT/HCPCS: 97803 ==

== ENCOUNTER → 2022-08-05 13:01 | Outpatient (BNVA) | payer OTHER, SELFPAY | PROVIDERS: PCP Internal Medicine; Visit Provider Physician Assistant Surgical | DX: E66.9 Obesity, unspecified (principal); Z68.35 Body mass index [BMI] 35.0-35.9, adult | CPT/HCPCS: 99212 ==

== ENCOUNTER 2022-10-04 09:31 | Outpatient (AMB) | payer OTHER, SELFPAY ==
--- NOTE | 2022-10-04 09:06 | A.OFFVIS_ITS ---
Intake VS Expanded 10/04/22 09:08 Height 5 ft 1 in Weight 181 lb BMI 34.2 Intake Visit Reasons: VIDEO F/U SWL Hazardous Substances Scientist Required: No Allergies No Known Allergies [No Known Allergies*] Allergy (Verified 08/05/22 13:11) Medication List - Last Reconciled 10/04/22 by BIJU Melgar cholecalciferol (vitamin D3) 125 mcg PO DAILY cyanocobalamin (vitamin B-12) 500 mcg PO DAILY esomeprazole magnesium (Nexium) 40 mg PO DAILY iron,carbonyl-vitamin C 65 mg iron- 125 mg (Vitron-C) 1 tab PO DAILY polyethylene glycol 3350 (Miralax) 17 grams PO DAILY sennosides (Natural Senna Laxative) 17.2 mg (2 x 8.6 mg) PO BEDTIME sucralfate 1 g PO TID 90 days thiamine HCl (vitamin B1) 100 mg PO DAILY vitamin A palmitate 3,000 mcg PO DAILY HPI HPI Comments History of Present Illness Details The patient is a pleasant 32 year old female who returns to the clinic for pre-operative surgical weight loss management. They were last seen in the office on 08/05/22, recorded weight at that time was 186.8 pounds, with a BMI of 35.3. Today's weight is 181 pounds and BMI is 34.2. There has been a weight loss of 13 pounds since initiating the surgical weight loss program on 06/11/22 with a total body weight loss of 6.7 %. Pre op work up completed as follows: SWL classes:? 10/29 appts: Originally cleared 10/09/21, cleared-07/04/22 ? ? RD appts: f/u 10/14/22 Labs: 06/19/22-mild anemia, low Iron, D, A, B1, B12 H. pylori: 09/04/[address] Sheth, Bx neg H Pylori CXR: 11/01/21-nad EK10/16/21-normal ABD U/S: 11/01/21-fatty liver UGI: 08/13/21 mod HH w GERD The patient reports she has started working overnights again and after 10 pm only has water. First shake at 10 am Current meal plan includes: 2 Orgain shakes, (1 scoops in 4 oz low fat unsweetened almond milk/4 oz water each), 7-9am, 2-4pm 1-2 portuguese yogurts, 11-1, 5-7pm (oikos Pro - 20 gm protein each) Dinner at 8pm (6 forks of protein and 4 forks of salad/vegetables). Try to drink 48-64 oz of water daily Current exercise plan includes: Joined [employer], although no exercise on 1 month? 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 Housing: Apartment Alcohol intake: current Alcohol intake frequency: holidays/special occasions only Alcohol type: beer Patient Tobacco Use Status: Never used Tobacco e-Cigarette/Vaping Use: Currently Using Current occupational status: employed Cognitive needs: No Hearing needs: No Vision needs: Yes Assessment & Plan Assessment & Plan (1) Obesity: Code(s): E66.9 - Obesity, unspecified Plan: she will text when she has a schedule She plans on stabilizing her work schedule to just overnights and will text me with her schedule so I can provide her a meal plan and exercise plan Telehealth Telehealth Location of provider rendering services: practice address Location of patient: other Patient Identification confirmed using: Name, : Yes Telehealth method: video Patient verbally consented to treatment: Yes Patient verbally consented to billing insurance company: Yes Patient informed of any privacy concerns related to visit: Yes Minutes spent on Phone/Video with Pt.: 15 Coding Level of Care Code Tele Est Pt Level 3 (84440) Diagnoses Obesity E66.9 Time Spent (min) 18
[2022-10-04 09:08] VITALS: BMI 34.2
== END 2022-10-04 09:59 | disposition home or self-care (01) ==
LOC: HO.HBS 09:31
PROVIDERS: PCP Internal Medicine; Visit Provider Physician Assistant Surgical
DX: E66.9 Obesity, unspecified (principal); Z68.34 Body mass index [BMI] 34.0-34.9, adult
CPT/HCPCS: 99213

== ENCOUNTER → 2022-10-04 09:31 | Outpatient (BNVA) | payer OTHER, SELFPAY | PROVIDERS: PCP Internal Medicine; Visit Provider Physician Assistant Surgical ==

== ENCOUNTER → 2022-10-14 13:20 | Outpatient (BNVA) | payer OTHER, SELFPAY | PROVIDERS: PCP Internal Medicine; Visit Provider Dietitian, Registered | DX: E66.9 Obesity, unspecified (principal) | CPT/HCPCS: 97803 ==

== ENCOUNTER 2024-01-20 09:52 | Emergency (ER) | payer OTHER, SELFPAY ==
[2024-01-20 10:00] VITALS: BP 113/44; PULSE 73; RESP 16; TEMP 36.2; O2SAT 98; BMI 35.0
--- NOTE | 2024-01-20 10:17 | ED_ITS ---
HPI - General Adult General Chief complaint: Ear Problems Stated complaint: Trouble hearing R ear Time Seen by Provider: 01/20/24 10:07 Source: patient Mode of arrival: ambulatory Limitations: no limitations History of Present Illness ED Provider: Tim Burton PA-C HPI narrative: 33-year-old female history of ear infections, hyperlipidemia, GERD, otitis media, and hiatal hernia presents to the ED for right ear pain for the past 3 days, and decreased hearing. Patient denies any recent swimming or recent trauma. Patient states coughing for couple of weeks and now having right ear pain. Patient denies any chest pain or shortness of breath. Patient denies any fever or chills. Related Data Previous Rx's ?Medication ?Instructions ?Recorded sucralfate 1 gram tablet 1 g PO TID 90 days #270 tabs 07/27/21 polyethylene glycol 3350 17 gram 17 g PO DAILY #100 ea 08/15/21 oral powder packet (Miralax) esomeprazole magnesium 40 mg 40 mg PO DAILY #90 caps 12/07/21 capsule,delayed release (Nexium) sennosides 8.6 mg tablet (Natural 17.2 mg (2 x 8.6 mg) PO BEDTIME 12/07/21 Senna Laxative) constipation #180 tabs cholecalciferol (vitamin D3) 125 125 mcg PO DAILY #90 caps 06/19/22 mcg (5,000 unit) capsule cyanocobalamin (vitamin B-12) 500 500 mcg PO DAILY #90 tabs 06/19/22 mcg tablet iron,carbonyl 65 mg-vitamin C 125 1 tab PO DAILY #90 tabs 06/19/22 mg tablet,delayed release (Vitron-C) vitamin A palmitate 3,000 mcg 3,000 mcg PO DAILY #30 tabs 06/27/22 (10,000 unit) tablet thiamine HCl (vitamin B1) 100 mg 100 mg PO DAILY #90 tabs 09/12/22 tablet amoxicillin 875 mg-potassium 1 tab PO Q12H 10 days #20 tabs 01/20/24 clavulanate 125 mg tablet naproxen 500 mg tablet 500 mg PO BID PRN pain 7 days #14 01/20/24 tabs Allergies Allergy/AdvReac Type Severity Reaction Status Date / Time No Known Allergies Allergy Verified 01/20/24 10:03 [No Known Allergies*] Review of Systems Review of Systems: Right ear pain Yes all other systems are reviewed and are negative [facility] Past Medical History Medical History Annual physical exam GERD (gastroesophageal reflux disease) High cholesterol History of gastrectomy Sleep apnea Surgical History History of esophagogastroduodenoscopy History of sleeve gastrectomy Hx of wisdom tooth extraction Family History Family History Mother HTN (hypertension) Father Cancer Heart problem Diabetes Social History Social History 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:: , 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, 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: 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 Alcohol intake: current Alcohol intake frequency: holidays/special occasions only Alcohol type: beer Patient Tobacco Use Status: Never used Tobacco e-Cigarette/Vaping Use: Currently Using Advance Directives: No Advance Directives Information Provided: No Do you have a plan to hurt others: No Plan Current occupational status: employed Cognitive needs: No Hearing needs: No Vision needs: Yes Physical Exam ED Vital Signs: Vital Signs - 24 hr 01/20/24 10:00 01/20/24 10:57 Temperature 97.1 F 97.1 F Pulse Rate 73 73 Respiratory Rate 16 16 Blood Pressure 113/44 L 113/44 L Pulse Oximetry 98 98 Oxygen Delivery Method Room Air Room Air BMI result Body Mass Index 35.0 Const General: cooperative, healthy appearing, comfortable, no acute distress, well developed, alert, awake and Physically active Orientation/consciousness: patient oriented x3 HENMT Head: Yes normal to inspection, Yes No palpable skull fracture present, Yes normocephalic, Yes atraumatic and No abrasion Ears: hearing grossly normal bilaterally, external ears normal, EAC's normal, mastoids normal, no periauricular adenopathy and TM abnormal erythematous b ilateral and perforated (possible right TM peforation) General nose exam: Normal external nose present, Normal nares present and No nasal polyps present Face and sinus: Yes normal facial exam, Yes sinuses nontender and Yes face symmetric Throat: Yes posterior oropharynx normal, Yes tonsils normal and Yes uvula midline Eyes General: appearance normal, both eyes and all related structures Neck Neck: Yes normal visual inspection, Yes full ROM, Yes no lymphadenopathy, Yes no meningeal signs, Yes trachea midline, Yes supple, No anterior neck swelling and No tender Chest Chest palpation & inspection: normal inspection of the chest and normal palpation of entire chest wall Resp Effort & Inspection: normal respiratory effort and able to speak in complete sentences Auscultation: clear to auscultation bilaterally Cardio Jugular venous distension: no JVD Heart sounds: S1 normal heart sound present and S2 normal heart sound present GI Inspection: Yes normal to inspection Palpation (GI): Soft to palpation, not firm, nontender, no guarding and not rigid General: No CVA tenderness and Yes no CVA tenderness Back/Spine/Pelvis Back: no CVA tenderness, No CVA tenderness and No back tenderness Skin General skin exam: no rashes or lesions noted, elasticity normal and turgor normal Neuro General: patient oriented x3, gait normal, tone normal, moves all extremities, Normal light touch and pain sensation, no meningeal signs, no focal motor deficits, CN's II-XI intact bilaterally and normal sensation to monofilament Extrem General: Yes normal to inspection, Yes full ROM and Yes capillary refill normal Psych Appearance: grossly normal, well kempt and not disheveled Medical Decision Making Medical Decision Making MDM Narrative: 33-year-old female presents to the ED for right ear pain with decreased hearing. Patient denies any trauma or recent swimming. Physical exam positive for bilateral tympanic membrane erythema. Right tympanic membrane possible perforation on evaluation. Patient has normal gait negative for any neuro deficits. Patient is informed she will need to follow-up with your specialist to re-evaluate right ear. Patient informed to place cotton in right ear not do any fluids going to date ear. Patient will be discharged with pain medication and antibiotics. Patient explained worrisome signs and informed to return to the ED immediately. Not suspecting brain bleed, mastoiditis, osteomyelitis, abscess, cellulitis, or skull fracture. Patient states taking NSAIDs before in the past without any issues even having a gastric sleeve surgery 7 years ago. Patient states her surgeon usually prescribes her NSAIDs. Differential Diagnosis Differential Diagnoses: The differential diagnosis associated with the presentation includes (Otitis media, externa, TM perforation) Admission/Observation Consideration of admission/observation: Escalation of care including admission/observation considered Independent Historian Clinical information obtained from an independent historian. History obtained from or confirmed by: Other (patient) External Record Review External record reviewed: Other (prior visits) Prescription Management I considered prescription management with: Pain Medication and Antibiotic Discharge Plan Discharge Clinical Impression: Otitis media Patient Disposition: Home, Self-Care Instructions: Ear Infection (ED) Additional Instructions: Recommend covering your ear with gauze to prevent fluid going into your right ear. Potentially you might have a tympanic membrane perforation, which can cause dizziness on movement. You also have erythema around the tympanic membrane. You will be discharged with antibiotics. Return to the ED immediately for any worsening ear pain, ear drainage, blood from the ears, redness, swelling in front/behind ear, fever, chills, headache, nausea, vomiting, slurred speech, facial droop, paralysis of extremities, loss of vision, neck swelling, facial swelling, or any other concerning symptoms. Prescriptions: New naproxen 500 mg tablet 500 mg PO BID PRN (Reason: pain) 7 Days Qty: 14 0RF amoxicillin-pot clavulanate 875-125 mg tablet 1 tab PO Q12H 10 Days Qty: 20 0RF No Action sucralfate 1 gram tablet 1 g PO TID 90 Days Qty: 270 1RF Vitron-C 65 mg iron- 125 mg tablet,delayed release (DR/EC) 1 tab PO DAILY Qty: 90 0RF Rx Instructions: swallow whole; do not chew/break/dissolve/open cholecalciferol (vitamin D3) 125 mcg (5,000 unit) capsule 125 mcg PO DAILY Qty: 90 0RF cyanocobalamin (vitamin B-12) 500 mcg tablet 500 mcg PO DAILY Qty: 90 0RF vitamin A palmitate 3,000 mcg (10,000 unit) tablet 3,000 mcg PO DAILY Qty: 30 1RF thiamine HCl (vitamin B1) 100 mg tablet 100 mg PO DAILY Qty: 90 0RF sennosides [Natural Senna Laxative] 8.6 mg tablet 17.2 mg PO BEDTIME Qty: 180 4RF esomeprazole magnesium [Nexium] 40 mg capsule,delayed release(DR/EC) 40 mg PO DAILY Qty: 90 5RF polyethylene glycol 3350 [Miralax] 17 gram powder in packet 17 g PO DAILY Qty: 100 3RF Referrals: Isreal Thacker [Physician] - (Otitis media. Possible right tympanic membrane perforation) Stand Alone Forms: Work/School Release Interventions: ED Discharge Assessment Last Done: 01/20/24 10:57 Discharge Date/Time: 01/20/24 10:58 Print Language: Montserratian
[2024-01-20 10:57] VITALS: BP 113/44; PULSE 73; RESP 16; TEMP 36.2; O2SAT 98
== END 2024-01-20 10:58 | disposition home or self-care (01) ==
PROVIDERS: Emergency Provider Emergency Medicine
DX: H66.91 Otitis media, unspecified, right ear (principal)
CPT/HCPCS: 99282; 99283

== ENCOUNTER 2024-04-02 15:35 | Emergency (ER) | payer OTHER, SELFPAY ==
--- NOTE | ~2024-04-02 | CT_ITS ---
CLINICAL HISTORY: R flank pain, hx calculi CT abdomen and pelvis without contrast Comparison: None Findings: The lung bases are clear. Abdominal organs are unremarkable. There is no urolithiasis or hydronephrosis. Poorly distended gallbladder with no calcified gallstones. No bowel obstruction, pneumoperitoneum, or pneumatosis. Moderate fecal retention within the colon. No bowel edema or obstruction. Tiny umbilical hernia containing fat. Prior gastric sleeve. Trace pelvic free fluid. Otherwise unremarkable pelvic contents. Normal appendix. The bones are intact. IMPRESSION: 1. No urolithiasis or biliary obstruction. 2. Moderate fecal retention within the colon. 3. Trace pelvic free fluid. This document has been electronically signed by: Vilma Barragan MD on 04/02/2024 17:36:49
[2024-04-02 15:47] VITALS: BP 128/54; PULSE 90; RESP 16; TEMP 36.4; O2SAT 98; BMI 34.8
--- NOTE | 2024-04-02 15:47 | ED.GENADULT ---
HPI - General Adult General Chief complaint: Urogenital-Female Stated complaint: side pain ?kidney stones Time Seen by Provider: 04/02/24 19:44 Source: patient Mode of arrival: ambulatory Limitations: no limitations History of Present Illness ED Provider: blessing jovel NP HPI narrative: Patient is a 33-year-old female with history of kidney stones presents emergency department for evaluation. She has been experiencing R > L flank pain over the past 2 weeks. However today has had severe increase in pain on the right side. Endorses urinary urgency but denies dysuria, hematuria frequency. No fevers or chills. No nausea or vomiting. Denies conern for , LMP late February. denies diarrhea. Related Data Previous Rx's ?Medication ?Instructions ?Recorded sucralfate 1 gram tablet 1 g PO TID 90 days #270 tabs 07/27/21 polyethylene glycol 3350 17 gram 17 g PO DAILY #100 ea 08/15/21 oral powder packet (Miralax) esomeprazole magnesium 40 mg 40 mg PO DAILY #90 caps 12/07/21 capsule,delayed release (Nexium) sennosides 8.6 mg tablet (Natural 17.2 mg (2 x 8.6 mg) PO BEDTIME 12/07/21 Senna Laxative) constipation #180 tabs cholecalciferol (vitamin D3) 125 125 mcg PO DAILY #90 caps 06/19/22 mcg (5,000 unit) capsule cyanocobalamin (vitamin B-12) 500 500 mcg PO DAILY #90 tabs 06/19/22 mcg tablet iron,carbonyl 65 mg-vitamin C 125 1 tab PO DAILY #90 tabs 06/19/22 mg tablet,delayed release (Vitron-C) vitamin A palmitate 3,000 mcg 3,000 mcg PO DAILY #30 tabs 06/27/22 (10,000 unit) tablet thiamine HCl (vitamin B1) 100 mg 100 mg PO DAILY #90 tabs 09/12/22 tablet amoxicillin 875 mg-potassium 1 tab PO Q12H 10 days #20 tabs 01/20/24 clavulanate 125 mg tablet naproxen 500 mg tablet 500 mg PO BID PRN pain 7 days #14 01/20/24 tabs polyethylene glycol 3350 17 17 g PO DAILY #119 grams 04/02/24 gram/dose oral powder (Miralax) sennosides 8.6 mg capsule (senna) 8.6 mg PO BEDTIME PRN constipation 04/02/24 #30 caps Allergies Allergy/AdvReac Type Severity Reaction Status Date / Time No Known Allergies Allergy Verified 04/02/24 15:49 [No Known Allergies*] Review of Systems Review of Systems: Yes all other systems are reviewed and are negative [facility] Past Medical History Attestation statement: The following information was validated with the patient. 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 Alcohol intake: current Alcohol intake frequency: holidays/special occasions only Alcohol type: beer Patient Tobacco Use Status: Never used Tobacco e-Cigarette/Vaping Use: Currently Using Current occupational status: employed Cognitive needs: No Hearing needs: No Vision needs: Yes Physical Exam ED Vital Signs: Vital Signs - 24 hr 04/02/24 15:47 04/02/24 19:42 Temperature 97.5 F 98.1 F Pulse Rate 90 83 Respiratory Rate 16 20 Blood Pressure 128/54 L 92/55 L Pulse Oximetry 98 99 Oxygen Delivery Method Room Air Room Air BMI result Body Mass Index 34.8 Appearance: Alert.?Oriented to person, place and time. No acute distress.?Normal affect.?? Neck: Normal inspection.? Neck supple.?? CVS: Heart sounds normal. Normal heart rate and rhythm.? Pulses normal.?? Respiratory: No respiratory distress.? Lung sounds clear to auscultation bilaterally?? Abdomen: Soft with diffuse right-sided abdominal tenderness upon palpation. Positive right CVAT.. No rebound tenderness at McBurney's point. Negative psoas sign. Negative Rovsing sign. Negative Calero sign. Normoactive bowel sounds. No pulsatile mass.?? Skin: Skin warm and dry.? Normal skin color.? Extremities: No lower extremity edema.? Neuro: Moves all extremities spontaneously. Sensation intact bilaterally. Ambulates with normal steady gait. Medical Decision Making Medical Decision Making [facility] Narrative: Patient is a 33-year-old female presents emergency department for evaluation, she is endorsing right flank pain as per HPI. Overall she appears well, nontoxic, afebrile. On exam has diffuse mild tenderness to the right abdomen upon palpation, right CVAT. CT of the abdomen and pelvis was obtained for further evaluation, no history of obstructive ureteral calculi, hydronephrosis, appendicitis, cholecystitis, there was notable stool burden to the right colon which I suspect at this time is most likely etiology for her pain. CBC is without leukocytosis, she has a chronic normocytic anemia that does not meet transfusion criteria, no thrombocytopenia. No significant electrolyte derangement. No RANJANA. LFTs with a minimally elevated AST/ALT 33/35, negative Calero sign, lipase of 26, lower suspicion for acute cholecystitis, choledocholithiasis, normal bilirubin, no fever jaundice to suggest acute cholangitis. HCG is negative, not consistent with ectopic . Denies concern for sexually transmitted infection, lower suspicion for TOA/torsion. Differential Diagnosis Differential Diagnoses: The differential diagnosis associated with the presentation includes (See narrative above) Admission/Observation Consideration of admission/observation: Escalation of care including admission/observation considered (See narrative above ) Lab Data [facility] Lab Attestation statement: I reviewed the patient's lab results. 04/02/24 16:14 04/02/24 16:14 Labs: Lab Results 04/02/24 04/02/24 Range/Units 16:14 16:23 WBC 4.9 (4.8-10.8) X10*3/uL RBC 3.51 L D (4.20-5.50) X10*6/uL Hgb 10.4 L (12.0-16.0) g/dl Hct 30.6 L (37.0-47.0) % MCV 87.2 (80.0-98.0) fL MCH 29.6 (27.0-33.0) pg MCHC 34.0 (31.0-35.0) g/dl RDW 16.2 H (11.0-16.0) % Plt Count 160 D (160-400) X10*3/uL MPV 9.2 L (9.4-12.3) fL Immature Gran % (Auto) 0.2 (0.0-0.4) % Neut % (Auto) 28.6 L (45-73) % Lymph % (Auto) 61.3 H (20-40) % [place] % (Auto) 6.3 (2-11) % Eos % (Auto) 3.2 (0-4) % Baso % (Auto) 0.4 (0-2) % Lymph # (Auto) 3.0 (1.2-4.9) X10*3/uL [place] # (Auto) 0.3 (0.1-1.2) X10*3/uL Eos # (Auto) 0.2 (0.0-0.4) X10*3/uL Baso # (Auto) 0.0 (0.0-0.2) X10*3/uL Abs Immat Gran (auto) 0.01 (0.00-0.03) X10*3/uL Absolute Neuts (auto) 1.4 L (2.0-8.3) x10*3/uL Absolute Nucleated RBC 0.000 (0.0-0.012) X10*3/uL Nucleated RBC % (auto) 0.0 (0.0-0.2) /100WBC Smear Tech's Comments VERIFIED Sodium 140 (135-145) mmol/L Potassium 3.6 (3.3-5.1) mmol/L Chloride 111 H (96-108) mmol/L Carbon Dioxide 26 (22-29) mmol/L Anion Gap 7 L (12-20) BUN 9 (9-16) mg/dL Creatinine 0.71 (0.5-1.4) mg/dL Estim Creat Clear Calc 110.4 Estimated GFR > 60 Random Glucose 107 (60-115) mg/dL Calcium 8.0 L (8.4-10.2) mg/dL Total Bilirubin 0.7 (0.0-1.0) mg/dL AST 33 H (5-31) U/L ALT 35 H (0-31) U/L Alkaline Phosphatase 50 (39-117) U/L Total Protein 6.1 L (6.5-8.0) g/dL Albumin 3.5 (3.5-5.0) g/dL Lipase 26 (8-78) U/L Beta HCG, Quant < 2 mIU/mL Urine Color Yellow Urine Appearance Clear Urine pH 7.0 (5.0-9.0) Ur Specific [place] >= 1.030 H (1.005-1.025) Urine Protein Trace (Neg-Trace) mg/dL Urine Glucose (UA) Negative (Negative) mg/dL Urine Ketones Trace (Negative) mg/dL Urine Blood Negative (Negative) Urine Nitrite Negative (Negative) Ur Leukocyte Esterase Negative (Negative) Independent Interpretation I performed an independent interpretation of an: CT Scan (No ureterolithiasis, no hydronephrosis, stool burden of the right ascending colon) Radiology Impression Discussion of test interpretation with radiology: I have reviewed the radiologist's reading. Radiologist Impression: CT abdomen and pelvis without contrast Comparison: None Findings: The lung bases are clear. Abdominal organs are unremarkable. There is no urolithiasis or hydronephrosis. Poorly distended gallbladder with no calcified gallstones. No bowel obstruction, pneumoperitoneum, or pneumatosis. Moderate fecal retention within the colon. No bowel edema or obstruction. Tiny umbilical hernia containing fat. Prior gastric sleeve. Trace pelvic free fluid. Otherwise unremarkable pelvic contents. Normal appendix. The bones are intact. IMPRESSION: 1. No urolithiasis or biliary obstruction. 2. Moderate fecal retention within the colon. 3. Trace pelvic free fluid. External Record Review External record reviewed: Outpatient record Prescription Management I considered prescription management with: Other (Laxatives) Discharge Plan Discharge Clinical Impression: Constipation Patient Disposition: Home, Self-Care Instructions: Constipation (ED), High Fiber Diet (ED) Additional Instructions: As discussed, imaging today does not reveal any evidence of kidney stones her blockage within the urinary system, urine test does not show evidence of infection. Her blood work was very reassuring. You are mildly anemic which has been seen in the past. CT imaging shows that you are constipated particularly with a notable amount of stool on the right side of your intestines. Be sure that you are staying well hydrated, drinking plenty of water throughout the day, increase dietary fiber, take medication sent to pharmacy to help to alleviate constipation. Follow-up with your primary care doctor. Return to emergency department any new or worsening symptoms or concerns. Prescriptions: New polyethylene glycol 3350 [Miralax] 17 gram/dose powder 17 g PO DAILY Qty: 119 0RF senna 8.6 mg capsule 8.6 mg PO BEDTIME PRN (Reason: constipation) Qty: 30 0RF No Action sucralfate 1 gram tablet 1 g PO TID 90 Days Qty: 270 1RF Vitron-C 65 mg iron- 125 mg tablet,delayed release (DR/EC) 1 tab PO DAILY Qty: 90 0RF Rx Instructions: swallow whole; do not chew/break/dissolve/open cholecalciferol (vitamin D3) 125 mcg (5,000 unit) capsule 125 mcg PO DAILY Qty: 90 0RF cyanocobalamin (vitamin B-12) 500 mcg tablet 500 mcg PO DAILY Qty: 90 0RF vitamin A palmitate 3,000 mcg (10,000 unit) tablet 3,000 mcg PO DAILY Qty: 30 1RF thiamine HCl (vitamin B1) 100 mg tablet 100 mg PO DAILY Qty: 90 0RF naproxen 500 mg tablet 500 mg PO BID PRN (Reason: pain) 7 Days Qty: 14 0RF amoxicillin-pot clavulanate 875-125 mg tablet 1 tab PO Q12H 10 Days Qty: 20 0RF sennosides [Natural Senna Laxative] 8.6 mg tablet 17.2 mg PO BEDTIME Qty: 180 4RF esomeprazole magnesium [Nexium] 40 mg capsule,delayed release(DR/EC) 40 mg PO DAILY Qty: 90 5RF polyethylene glycol 3350 [Miralax] 17 gram powder in packet 17 g PO DAILY Qty: 100 3RF Referrals: Physician,None [Primary Care Provider] - Interventions: ED Discharge Assessment Last Done: 04/02/24 19:48 Print Language: Spanish
[2024-04-02 16:25] LABS: Basophils Percent Auto 0.4 % (0-2); Eosinophils Absolute Auto 0.2 X10*3/uL (0.0-0.4); Eosinophils Percent Auto 3.2 % (0-4); Hematocrit 30.6 % (37.0-47.0); Hemoglobin 10.4 g/dl (12.0-16.0); Imm Gran Abs Auto 0.01 X10*3/uL (0.00-0.03); Imm Gran Pct Auto 0.2 % (0.0-0.4); Lymphocytes Percent Auto 61.3 % (20-40); MANUAL DIFF FLAG SCAN; Mean Corpuscular Hemoglobin 29.6 pg (27.0-33.0); Mean Corpuscular Volume 87.2 fL (80.0-98.0); Mean Platelet Volume 9.2 fL (9.4-12.3); Monocytes Absolute Auto 0.3 X10*3/uL (0.1-1.2); Monocytes Percent Auto 6.3 % (2-11); Neutrophils Absolute Auto 1.4 x10*3/uL (2.0-8.3); Neutrophils Percent Auto 28.6 % (45-73); Platelet Count 160 X10*3/uL (160-400); Red Blood Count 3.51 X10*6/uL (4.20-5.50); Red Cell Distribution Width 16.2 % (11.0-16.0); SCAN SMEAR FLAG 1; White Blood Count 4.9 X10*3/uL (4.8-10.8)
[2024-04-02 16:39] LABS: Appearance Urine Clear; Color Urine Yellow; Glucose Urine UA Negative (Negative); Leukocyte Esterase Urine Negative (Negative); Nitrite Urine Negative (Negative); Specific Gravity - Urine >= 1.030 (1.005-1.025); Urine Blood Negative (Negative); Urine Ketones Trace mg/dL (Negative); Urine Protein Trace mg/dL (Neg-Trace)
[2024-04-02 16:40] LABS: Alanine Aminotransferase 35 U/L (0-31); Albumin Level 3.5 g/dL (3.5-5.0); Alkaline Phosphatase 50 U/L (39-117); Anion Gap 7 (12-20); Aspartate Amino Transferase 33 U/L (5-31); Bilirubin Total 0.7 mg/dL (0.0-1.0); Blood Urea Nitrogen 9 mg/dL (9-16); Carbon Dioxide 26 mmol/L (22-29); Chloride 111 mmol/L (96-108); Creatinine Clr Calc Pharmacy 110.4; Estimated Glomerular Filt Rate > 60; Glucose Random 107 mg/dL (60-115); Lipase 26 U/L (8-78); Potassium 3.6 mmol/L (3.3-5.1); Sodium 140 mmol/L (135-145); Total Protein 6.1 g/dL (6.5-8.0)
[2024-04-02 16:42] LABS: HCG Quantitative < 2 mIU/mL
[2024-04-02 18:16] LABS: SLIDE REVIEW VERIFIED
[2024-04-02 19:42] VITALS: BP 92/55; PULSE 83; RESP 20; TEMP 36.7; O2SAT 99
[2024-04-02 19:48] VITALS: BP 92/55; PULSE 83; RESP 20; TEMP 36.7; O2SAT 99
== END 2024-04-02 19:50 | disposition home or self-care (01) ==
LOC: HO.ED 19:47
PROVIDERS: Nurse Practitioner Family; Emergency Provider Emergency Medicine
DX: K59.00 Constipation, unspecified (principal); R39.15 Urgency of urination; R10.2 Pelvic and perineal pain; R10.819 Abdominal tenderness, unspecified site; Z79.899 Other long term (current) drug therapy; Z87.442 Personal history of urinary calculi
CPT/HCPCS: 36415; 74176; 80053; 81003; 83690; 84702; 85025; 99284

== ENCOUNTER → 2024-04-02 15:50 | Outpatient (BNV) | payer OTHER, SELFPAY | PROVIDERS: Visit Provider Radiology Diagnostic Radiology | DX: R10.9 Unspecified abdominal pain (principal) | CPT/HCPCS: 74176 ==

== ENCOUNTER 2024-05-05 08:33 | Emergency (ER) | payer OTHER, SELFPAY ==
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
[2024-05-05 08:36] VITALS: BP 107/67; PULSE 102; RESP 20; TEMP 36.5; O2SAT 98; BMI 31.9
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
[2024-05-05] MEDS: Acetaminophen 325 MG TABLET 975 MG PO (12:33)
[2024-05-05 12:34] VITALS: BP 107/67; PULSE 102; RESP 20; TEMP 36.5; O2SAT 98
== END 2024-05-05 12:34 | disposition home or self-care (01) ==
PROVIDERS: Emergency Provider Emergency Medicine
DX: S46.912A Strain of unspecified muscle, fascia and tendon at shoulder and upper arm level, left arm, initial encounter (principal); M79.602 Pain in left arm; M25.522 Pain in left elbow; V43.52XA Car driver injured in collision with other type car in traffic accident, initial encounter; Y93.89 Activity, other specified; Y92.488 Other paved roadways as the place of occurrence of the external cause; Y99.8 Other external cause status; M54.50 Low back pain, unspecified
CPT/HCPCS: 72100; 73030; 73060; 73080; 99283

== ENCOUNTER → 2024-05-05 08:43 | Outpatient (BNV) | payer OTHER, SELFPAY | PROVIDERS: Visit Provider Radiology Diagnostic Radiology | DX: M54.9 Dorsalgia, unspecified (principal); M79.602 Pain in left arm; V89.2XXA Person injured in unspecified motor-vehicle accident, traffic, initial encounter | CPT/HCPCS: 72100; 73030; 73060; 73080 ==

== ENCOUNTER 2024-05-11 17:56 | Emergency (ER) | payer OTHER, SELFPAY ==
--- NOTE | ~2024-05-11 | XR_ITS ---
CLINICAL HISTORY: SOB, cough 2 view chest x-ray Comparison: Chest x-ray from 11/01/2021 Findings: Mild right infrahilar opacities as can be seen with pneumonitis. No pneumothorax or effusion. Heart size is normal. Imaged left clavicle deformity appears old and mild. IMPRESSION: Mild right infrahilar opacities concerning for mild pneumonitis. This document has been electronically signed by: Oscar Carpenter MD on 05/11/2024 20:18:49
[2024-05-11 18:36] VITALS: BP 112/46; PULSE 94; RESP 20; TEMP 37.8; O2SAT 98; BMI 33.1
--- NOTE | 2024-05-11 18:40 | ED_ITS ---
HPI - URI/Sore Throat General Chief Complaint: Upper Respiratory Symptoms Stated Complaint: Vomiting/SOB Related Data Previous Rx's ?Medication ?Instructions ?Recorded sucralfate 1 gram tablet 1 g PO TID 90 days #270 tabs 07/27/21 polyethylene glycol 3350 17 gram 17 g PO DAILY #100 ea 08/15/21 oral powder packet (Miralax) esomeprazole magnesium 40 mg 40 mg PO DAILY #90 caps 12/07/21 capsule,delayed release (Nexium) sennosides 8.6 mg tablet (Natural 17.2 mg (2 x 8.6 mg) PO BEDTIME 12/07/21 Senna Laxative) constipation #180 tabs cholecalciferol (vitamin D3) 125 125 mcg PO DAILY #90 caps 06/19/22 mcg (5,000 unit) capsule cyanocobalamin (vitamin B-12) 500 500 mcg PO DAILY #90 tabs 06/19/22 mcg tablet iron,carbonyl 65 mg-vitamin C 125 1 tab PO DAILY #90 tabs 06/19/22 mg tablet,delayed release (Vitron-C) vitamin A palmitate 3,000 mcg 3,000 mcg PO DAILY #30 tabs 06/27/22 (10,000 unit) tablet thiamine HCl (vitamin B1) 100 mg 100 mg PO DAILY #90 tabs 09/12/22 tablet amoxicillin 875 mg-potassium 1 tab PO Q12H 10 days #20 tabs 01/20/24 clavulanate 125 mg tablet naproxen 500 mg tablet 500 mg PO BID PRN pain 7 days #14 01/20/24 tabs polyethylene glycol 3350 17 17 g PO DAILY #119 grams 04/02/24 gram/dose oral powder (Miralax) sennosides 8.6 mg capsule (senna) 8.6 mg PO BEDTIME PRN constipation 04/02/24 #30 caps azithromycin 250 mg tablet See Rx Instructions PO .COMPLEX #6 05/12/24 (Zithromax Z-Aydin) tabs oseltamivir 75 mg capsule (Tamiflu) 75 mg PO BID 5 days #10 caps 05/12/24 Allergies Allergy/AdvReac Type Severity Reaction Status Date / Time No Known Allergies Allergy Verified 05/12/24 01:32 [No Known Allergies*] PMFSH Past Medical History Medical History Sleep apnea GERD (gastroesophageal reflux disease) Annual physical exam High cholesterol History of gastrectomy Surgical History Hx of wisdom tooth extraction History of esophagogastroduodenoscopy History of sleeve gastrectomy Family History Family History Mother HTN (hypertension) Father Cancer Heart problem Diabetes Social History Social History 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:: , 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, 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: 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 Alcohol intake: current Alcohol intake frequency: holidays/special occasions only Alcohol type: wine Patient Tobacco Use Status: Never used Tobacco Smoked in Last 30 Days: No e-Cigarette/Vaping Use: Currently Using Use of substances other than those prescribed or required for medical reasons: No Advance Directives: No Advance Directives Information Provided: Yes Do you have a plan to hurt others: No Plan Patient : No Current occupational status: employed Cognitive needs: No Hearing needs: No Vision needs: Yes Physical Exam Vital Signs: Vital Signs: Last Vital Signs Temp 100.0 F 05/11/24 18:36 Pulse 94 05/11/24 18:36 Resp 20 05/11/24 18:36 BP 112/46 L 05/11/24 18:36 Pulse Ox 98 05/11/24 18:36 O2 Del Method Room Air 05/11/24 18:36 BMI result Body Mass Index 33.1 Course Course Course Narrative: This is an RME: Additional HPI, ROS, PE not included below will be deferred to primary provider. RME assessment and note performed by: Rosina Hill PA-C This is a 34-year-old female, with a history of asthma, who presents emergency department with complaints of body aches, nausea, vomiting which started today. Has been tested positive for influenza. Patient reports chest pain with cough. Plan: Chest x-ray, COVID, flu, RSV, strep Reevaluation(s) Reevaluation #1: Patient left without completing treatment. Medications Administered Discontinued Medications Generic Name Dose Route Start Last Admin Trade Name Freq PRN Reason Stop Dose Admin Ondansetron HCl 4 mg 05/11/24 18:40 05/11/24 18:44 Ondansetron Odt 4 Mg Tab.Vanessa BILLINGSLEY 05/11/24 18:41 4 mg ONCE ONE Administration Medical Decision Making Lab Data Labs: Lab Results 05/11/24 Range/Units 18:54 Influenza Type A (PCR) POSITIVE A (Negative) Influenza Type B (PCR) NEGATIVE (Negative) RSV RNA Qual (PCR) NEGATIVE (Negative) SARS-CoV-2 RNA (RT-PCR) NEGATIVE (Negative) S. pyogenes GrpA GIL Negative (Negative) Discharge Plan Discharge Clinical Impression: Influenza Patient Disposition: Left W/O Completing Treatment Prescriptions: No Action sucralfate 1 gram tablet 1 g PO TID 90 Days Qty: 270 1RF Vitron-C 65 mg iron- 125 mg tablet,delayed release (DR/EC) 1 tab PO DAILY Qty: 90 0RF Rx Instructions: swallow whole; do not chew/break/dissolve/open cholecalciferol (vitamin D3) 125 mcg (5,000 unit) capsule 125 mcg PO DAILY Qty: 90 0RF cyanocobalamin (vitamin B-12) 500 mcg tablet 500 mcg PO DAILY Qty: 90 0RF vitamin A palmitate 3,000 mcg (10,000 unit) tablet 3,000 mcg PO DAILY Qty: 30 1RF thiamine HCl (vitamin B1) 100 mg tablet 100 mg PO DAILY Qty: 90 0RF naproxen 500 mg tablet 500 mg PO BID PRN (Reason: pain) 7 Days Qty: 14 0RF amoxicillin-pot clavulanate 875-125 mg tablet 1 tab PO Q12H 10 Days Qty: 20 0RF azithromycin [Zithromax Z-Aydin] 250 mg tablet See Rx Instructions .ROUTE .COMPLEX Qty: 6 0RF Rx Instructions: For 250 mg dose pack: take 500 mg today (day 1), then 250 mg for 4 days (days 2-5) oseltamivir [Tamiflu] 75 mg capsule 75 mg PO BID 5 Days Qty: 10 0RF polyethylene glycol 3350 [Miralax] 17 gram/dose powder 17 g PO DAILY Qty: 119 0RF senna 8.6 mg capsule 8.6 mg PO BEDTIME PRN (Reason: constipation) Qty: 30 0RF sennosides [Natural Senna Laxative] 8.6 mg tablet 17.2 mg PO BEDTIME Qty: 180 4RF esomeprazole magnesium [Nexium] 40 mg capsule,delayed release(DR/EC) 40 mg PO DAILY Qty: 90 5RF polyethylene glycol 3350 [Miralax] 17 gram powder in packet 17 g PO DAILY Qty: 100 3RF Discharge Date/Time: 05/11/24 22:29
[2024-05-11] MEDS: Ondansetron ODT 4 MG TAB.RAPDIS TRANSLINGU (18:44)
[2024-05-11 19:15] LABS: IDNOW Serial# 58CA691E; Strep A Nucleic Acid Negative (Negative)
[2024-05-11 19:46] LABS: Influenza A PCR POSITIVE (Negative); Influenza B PCR NEGATIVE (Negative); Resp Syncy Virus RNA Qual PCR NEGATIVE (Negative); SARS COV2 PCR INHOUSE NEGATIVE (Negative)
--- NOTE | 2024-05-12 01:03 | PC.NURSE ---
pt states she was in the waiting room the whole time but was asleep after receiving medication.
== END 2024-05-11 22:29 | disposition left against medical advice (07) ==
PROVIDERS: Physician Assistant Medical; Emergency Provider Emergency Medicine
DX: J10.1 Influenza due to other identified influenza virus with other respiratory manifestations (principal); R06.02 Shortness of breath; J45.909 Unspecified asthma, uncomplicated; Z03.818 Encounter for observation for suspected exposure to other biological agents ruled out
CPT/HCPCS: 0241U; 71046; 87651; 99281; 99283

== ENCOUNTER → 2024-05-11 18:40 | Outpatient (BNV) | payer OTHER, SELFPAY | PROVIDERS: Visit Provider Radiology Neuroradiology | DX: R06.02 Shortness of breath (principal); R05.9 Cough, unspecified | CPT/HCPCS: 71046 ==

== ENCOUNTER 2024-05-12 01:03 | Emergency (ER) | payer SELFPAY ==
--- NOTE | 2024-05-12 01:27 | PC.NURSE ---
pt was not answering to her name being called due to she was sleeping per pt. Reg is unable to merg the charts. pt was given zofran
[2024-05-12 01:29] VITALS: BP 127/73; PULSE 91; RESP 16; TEMP 36.8; O2SAT 100; BMI 33.3
--- NOTE | 2024-05-12 02:18 | ED_ITS ---
HPI - General Adult General Chief complaint: General Medical Stated complaint: vomiting / SOB Time Seen by Provider: 05/12/24 02:00 Source: patient Mode of arrival: ambulatory Limitations: no limitations History of Present Illness ED Provider: DR. Luke HPI narrative: 34-year-old female came into the emergency department for evaluation of generalized body ache, coughing, sneezing, vomiting, subjective fever, chest pain with coughing. 2 family member at home are sick with similar symptoms and tested positive for the flu. Patient is unable to tolerate p.o. intake. Related Data Previous Rx's ?Medication ?Instructions ?Recorded sucralfate 1 gram tablet 1 g PO TID 90 days #270 tabs 07/27/21 polyethylene glycol 3350 17 gram 17 g PO DAILY #100 ea 08/15/21 oral powder packet (Miralax) esomeprazole magnesium 40 mg 40 mg PO DAILY #90 caps 12/07/21 capsule,delayed release (Nexium) sennosides 8.6 mg tablet (Natural 17.2 mg (2 x 8.6 mg) PO BEDTIME 12/07/21 Senna Laxative) constipation #180 tabs cholecalciferol (vitamin D3) 125 125 mcg PO DAILY #90 caps 06/19/22 mcg (5,000 unit) capsule cyanocobalamin (vitamin B-12) 500 500 mcg PO DAILY #90 tabs 06/19/22 mcg tablet iron,carbonyl 65 mg-vitamin C 125 1 tab PO DAILY #90 tabs 06/19/22 mg tablet,delayed release (Vitron-C) vitamin A palmitate 3,000 mcg 3,000 mcg PO DAILY #30 tabs 06/27/22 (10,000 unit) tablet thiamine HCl (vitamin B1) 100 mg 100 mg PO DAILY #90 tabs 09/12/22 tablet amoxicillin 875 mg-potassium 1 tab PO Q12H 10 days #20 tabs 01/20/24 clavulanate 125 mg tablet naproxen 500 mg tablet 500 mg PO BID PRN pain 7 days #14 01/20/24 tabs polyethylene glycol 3350 17 17 g PO DAILY #119 grams 04/02/24 gram/dose oral powder (Miralax) sennosides 8.6 mg capsule (senna) 8.6 mg PO BEDTIME PRN constipation 04/02/24 #30 caps azithromycin 250 mg tablet See Rx Instructions PO .COMPLEX #6 05/12/24 (Zithromax Z-Aydin) tabs oseltamivir 75 mg capsule (Tamiflu) 75 mg PO BID 5 days #10 caps 05/12/24 Allergies Allergy/AdvReac Type Severity Reaction Status Date / Time No Known Allergies Allergy Verified 05/12/24 01:32 [No Known Allergies*] Review of Systems 2 Review of Systems: All other systems are reviewed and are negative Constitutional: Reports as per HPI and Reports no additional constitutional complaints Eyes: Reports as per HPI and Reports no additional eye complaints Reports system reviewed and no additional complaints, except as documented Cardiovascular: Reports as per HPI and Reports no additional cardiovascular complaints Respiratory: Reports as per HPI and Reports no additional respiratory complaints Gastrointestinal: Reports as per HPI and Reports no additional gastrointestinal complaints Genitourinary: Reports no additional female genitourinary complaints Musculoskeletal: Reports no additional musculoskeletal complaints Skin/Breast: Reports system reviewed and no additional complaints, except as docu Psychiatric: Reports no additional psychiatric complaints Endocrine: Reports no additional endocrine complaints Hematologic/Lymphatic: Reports no additional hematologic/lymphatic complaints Allergic/Immunologic: Reports no additional allergic/immunologic complaints Reports system reviewed and no additional complaints, except as documented and Reports Abnormal speech present [facility] Past Medical History Medical History Sleep apnea GERD (gastroesophageal reflux disease) Annual physical exam High cholesterol History of gastrectomy Surgical History Hx of wisdom tooth extraction History of esophagogastroduodenoscopy History of sleeve gastrectomy Family History Family History Mother HTN (hypertension) Father Cancer Heart problem Diabetes Social History Social History 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:: , 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, 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 Housing: Apartment Alcohol intake: current Alcohol intake frequency: holidays/special occasions only Alcohol type: wine Patient Tobacco Use Status: Never used Tobacco Smoked in Last 30 Days: No e-Cigarette/Vaping Use: Currently Using Use of substances other than those prescribed or required for medical reasons: No Advance Directives: No Advance Directives Information Provided: Yes Do you have a plan to hurt others: No Plan Patient : No Current occupational status: employed Cognitive needs: No Hearing needs: No Vision needs: Yes Physical Exam ED Vital Signs: Vital Signs - 24 hr 05/12/24 01:29 05/12/24 04:00 05/12/24 05:14 Temperature 98.3 F 97.8 F Pulse Rate 91 77 80 Respiratory Rate 16 12 Blood Pressure 127/73 90/42 L Pulse Oximetry 100 98 Oxygen Delivery Method Room Air Room Air 05/12/24 06:00 Temperature 97.7 F Pulse Rate 77 Respiratory Rate 16 Blood Pressure 107/65 Pulse Oximetry 99 Oxygen Delivery Method Room Air BMI result Body Mass Index 33.3 Vital signs have been reviewed and appear to be correct. Blood pressure elevated. Heart rate normal. Respiratory rate normal. Temperature normal. Oxygen saturation normal. Appearance: Alert. Oriented X3. No acute distress. Head: Normal external exam. Normocephalic. Atraumatic. No Woods signs noted. No raccoon eyes noted Eyes: PERRLA. EOMI. Conjunctiva and sclera normal. Eyelids normal. ENT: TM's Normal. Pharynx normal. Uvula midline. Dry mucous membranes. No trismus noted. No drooling noted. No muffled voice noted. Neck: Normal inspection. Neck supple. FROM. No adenopathy. Thyroid Normal. No meningeal signs. No neck mass noted. CVS: Normal heart rate and rhythm. Heart sound normal. No murmurs noted. Pulses normal throughout. Respiratory: No respiratory distress. Painless inspiration. Breath sounds normal. No wheezes/rales/rhonchi noted. Chest nontender. No accessory muscle usage noted or decreased air movement noted. Abdomen: Soft and nontender. Bowel sounds normal in all 4 quadrants. No distention noted. No organomegaly noted. No visible injury noted. Back: No CVA tenderness. Full range of motion noted. Skin: Skin warm and dry. Normal skin color. Normal skin turgor. No rashes/lesions/lacerations noted. Extremities: No lower extremity edema. Extremities exhibit normal range of motion. Extremities nontender. Neuro: Oriented X 3. Cranial nerve exam: II-XII are grossly intact No motor deficit. No sensory deficit. Reflexes normal. Course Reevaluation(s) Reevaluation #1: feels better, able to tolerate p.o. intake. Time: 06:54 Medications Administered Discontinued Medications Generic Name Dose Route Start Last Admin Trade Name Christiana PRN Reason Stop Dose Admin Azithromycin 250 mg 05/12/24 02:27 05/12/24 03:37 Azithromycin 250 Mg Tablet PO 05/12/24 02:28 250 mg ONCE ONE Administration Sodium Chloride 1,000 mls @ 999 mls/hr 05/12/24 02:17 05/12/24 03:06 Ns IV 05/12/24 03:17 999 mls/hr .Q1H1M ONE Administration Ketorolac Tromethamine 15 mg 05/12/24 02:17 05/12/24 03:00 Ketorolac Tromethamine 15 Mg/Ml Vial IVPUSH 05/12/24 02:18 15 mg ONCE ONE Administration Ondansetron HCl 4 mg 05/12/24 02:17 05/12/24 03:00 Ondansetron Hcl 4 Mg/2 Ml Vial IVPUSH 05/12/24 02:18 4 mg ONCE ONE Administration Oseltamivir Phosphate 75 mg 05/12/24 02:21 05/12/24 03:00 Oseltamivir Phosphate 75 Mg Capsule PO 05/12/24 02:22 75 mg ONCE ONE Administration Medical Decision Making Differential Diagnosis Differential Diagnoses: The differential diagnosis associated with the presentation includes ( influenza, COVID-19 infection, RSV, dehydration, electrolyte derangement, severe anemia, Pneumonia, pneumothorax, pleural effusion.) Admission/Observation Consideration of admission/observation: Escalation of care including admission/observation considered Lab Data MDM Lab Attestation statement: I reviewed the patient's lab results. 05/12/24 05:39 05/12/24 05:39 Labs: Lab Results 05/12/24 Range/Units 05:39 WBC 2.4 L (4.8-10.8) X10*3/uL RBC 3.74 L (4.20-5.50) X10*6/uL Hgb 10.8 L (12.0-16.0) g/dl Hct 32.1 L (37.0-47.0) % MCV 85.8 (80.0-98.0) fL MCH 28.9 (27.0-33.0) pg MCHC 33.6 (31.0-35.0) g/dl RDW 12.6 (11.0-16.0) % Plt Count 184 (160-400) X10*3/uL MPV 9.3 L (9.4-12.3) fL Sodium 137 (135-145) mmol/L Potassium 3.6 (3.3-5.1) mmol/L Chloride 109 H (96-108) mmol/L Carbon Dioxide 24 (22-29) mmol/L Anion Gap 8 L (12-20) BUN 4 L (9-16) mg/dL Creatinine 0.63 (0.5-1.4) mg/dL Estim Creat Clear Calc 120.5 Estimated GFR > 60 Random Glucose 88 (60-115) mg/dL Calcium 7.6 L (8.4-10.2) mg/dL Troponin I High Sens < 2.7 (<3.5-17.0) ng/L Independent Interpretation I performed an independent interpretation of an: Plain X-Ray ( chest:Mild right infrahilar opacities concerning for mild pneumonitis.) Radiology Impression Discussion of test interpretation with radiology: I have reviewed the radiologist's reading. Discharge Plan Discharge Clinical Impression: Influenza, Pneumonia Patient Disposition: Home, Self-Care Instructions: Influenza (ED), Community Acquired Pneumonia (ED) Prescriptions: New azithromycin [Zithromax Z-Aydin] 250 mg tablet See Rx Instructions .ROUTE .COMPLEX Qty: 6 0RF Rx Instructions: For 250 mg dose pack: take 500 mg today (day 1), then 250 mg for 4 days (days 2-5) oseltamivir [Tamiflu] 75 mg capsule 75 mg PO BID 5 Days Qty: 10 0RF No Action sucralfate 1 gram tablet 1 g PO TID 90 Days Qty: 270 1RF Vitron-C 65 mg iron- 125 mg tablet,delayed release (DR/EC) 1 tab PO DAILY Qty: 90 0RF Rx Instructions: swallow whole; do not chew/break/dissolve/open cholecalciferol (vitamin D3) 125 mcg (5,000 unit) capsule 125 mcg PO DAILY Qty: 90 0RF cyanocobalamin (vitamin B-12) 500 mcg tablet 500 mcg PO DAILY Qty: 90 0RF vitamin A palmitate 3,000 mcg (10,000 unit) tablet 3,000 mcg PO DAILY Qty: 30 1RF thiamine HCl (vitamin B1) 100 mg tablet 100 mg PO DAILY Qty: 90 0RF naproxen 500 mg tablet 500 mg PO BID PRN (Reason: pain) 7 Days Qty: 14 0RF amoxicillin-pot clavulanate 875-125 mg tablet 1 tab PO Q12H 10 Days Qty: 20 0RF polyethylene glycol 3350 [Miralax] 17 gram/dose powder 17 g PO DAILY Qty: 119 0RF senna 8.6 mg capsule 8.6 mg PO BEDTIME PRN (Reason: constipation) Qty: 30 0RF sennosides [Natural Senna Laxative] 8.6 mg tablet 17.2 mg PO BEDTIME Qty: 180 4RF esomeprazole magnesium [Nexium] 40 mg capsule,delayed release(DR/EC) 40 mg PO DAILY Qty: 90 5RF polyethylene glycol 3350 [Miralax] 17 gram powder in packet 17 g PO DAILY Qty: 100 3RF Print Language: Vietnamese
[2024-05-12] MEDS: Ketorolac Tromethamine 15 MG/ML VIAL IVPUSH (03:00)
[2024-05-12] MEDS: ondansetron HCL 4 MG/2 ML VIAL IVPUSH (03:00)
[2024-05-12] MEDS: Oseltamivir Phosphate 75 MG CAPSULE PO (03:00)
[2024-05-12] MEDS: 0.9 % Sodium Chloride 1,000 ML 999 ML IV (03:06)
[2024-05-12] MEDS: Azithromycin 250 MG TABLET PO (03:37)
[2024-05-12 04:00] VITALS: PULSE 77; RESP 12; TEMP 36.6; O2SAT 98
[2024-05-12 05:14] VITALS: BP 90/42; PULSE 80
[2024-05-12 05:50] LABS: Basophils Percent Auto 0.4 % (0-2); Eosinophils Absolute Auto 0.1 X10*3/uL (0.0-0.4); Eosinophils Percent Auto 2.5 % (0-4); Hematocrit 32.1 % (37.0-47.0); Hemoglobin 10.8 g/dl (12.0-16.0); Lymphocytes Absolute Auto 0.6 X10*3/uL (1.2-4.9); Lymphocytes Percent Auto 25.3 % (20-40); MANUAL DIFF FLAG SCAN; Mean Corpuscular HGB Conc 33.6 g/dl (31.0-35.0); Mean Corpuscular Hemoglobin 28.9 pg (27.0-33.0); Mean Corpuscular Volume 85.8 fL (80.0-98.0); Mean Platelet Volume 9.3 fL (9.4-12.3); Monocytes Absolute Auto 0.3 X10*3/uL (0.1-1.2); Monocytes Percent Auto 13.7 % (2-11); Neutrophils Absolute Auto 1.4 x10*3/uL (2.0-8.3); Neutrophils Percent Auto 58.1 % (45-73); Platelet Count 184 X10*3/uL (160-400); Red Blood Count 3.74 X10*6/uL (4.20-5.50); Red Cell Distribution Width 12.6 % (11.0-16.0); SCAN SMEAR FLAG 1
[2024-05-12 06:00] VITALS: BP 107/65; PULSE 77; RESP 16; TEMP 36.5; O2SAT 99
[2024-05-12 06:03] LABS: White Blood Count 2.4 X10*3/uL (4.8-10.8)
[2024-05-12 06:06] LABS: Anion Gap 8 (12-20); Blood Urea Nitrogen 4 mg/dL (9-16); Calcium 7.6 mg/dL (8.4-10.2); Carbon Dioxide 24 mmol/L (22-29); Chloride 109 mmol/L (96-108); Creatinine Clr Calc Pharmacy 120.5; Estimated Glomerular Filt Rate > 60; Glucose Random 88 mg/dL (60-115); Potassium 3.6 mmol/L (3.3-5.1); Sodium 137 mmol/L (135-145)
[2024-05-12 06:15] LABS: Troponin-I High Sensitivity < 2.7 ng/L (<3.5-17.0)
[2024-05-12 07:11] LABS: SLIDE REVIEW VERIFIED
[2024-05-12 07:35] VITALS: BP 126/73; PULSE 68; RESP 16; TEMP 36.6; O2SAT 96
== END 2024-05-12 07:38 | disposition home or self-care (01) ==
PROVIDERS: Emergency Provider Emergency Medicine
DX: J10.00 Influenza due to other identified influenza virus with unspecified type of pneumonia (principal); R05.9 Cough, unspecified
CPT/HCPCS: 36415; 80048; 84484; 85025; 96374; 96375; 99284; J1885; J2405

== ENCOUNTER 2024-11-03 08:48 | Emergency (ER) | payer OTHER, SELFPAY ==
[2024-11-03 08:55] VITALS: BP 103/51; PULSE 80; RESP 16; TEMP 36.7; O2SAT 98; BMI 33.7
--- NOTE | 2024-11-03 09:12 | PC.NURSE ---
Pt to ED 21 from triage, reports body aches, sore throat, and nasal congestion since yesterday. A/O x 3, reports some nausea and vomiting. Viral panel pending, pt reports having room mate who is COVID +.
[2024-11-03 09:31] LABS: IDNOW Serial# 58CA691E; Strep A Nucleic Acid Negative (Negative)
[2024-11-03 09:48] LABS: Resp Syncy Virus RNA Qual PCR NEGATIVE (Negative); SARS COV2 PCR INHOUSE NEGATIVE (Negative)
--- OUTSIDE RECORDS SUMMARY | 2024-11-03 09:51 | XMS_ITS | Clinical Summary ---
Author Organization [facility] Address [address] [place] [phone] Phone Care Team Providers Care Equity Research Associate Name Role Phone Pcp, Unknown Primary Care Provider Unavailabl e Encounters Date Type Department Care Team Description 09/10/2024 8:33 AM EDT - 09/10/2024 11:59 PM EDT Hospital Encounter [facility] [address] [place] [address] Emma Kitchen PA Discharge Disposition: Home or Self Care from Last 3 Months Immunizations Immunization Administration Dates Next Due COVID-19 (Pre-01/13) Pfizer Vaccine, mRNA, PF 09/22/2020,08/31/2020 Hepatitis B Adult 02/12/2021,,03/21/1994,1993,06/12/1993 Influenza, Unspecified Formulation 02/05/2021 MMR 11/20/1994,05/11/1991 Social History Tobacco Use Types Packs/Day Years Used Date Smoking Tobacco: Never Assessed Education Answer Date Recorded Are you interested in more education? Not on chris e 07/20/2022 Are you concerned about learning? Not on file 07/20/2022 No 07/20/2022 No 07/20/2022 Digital Access Answer Date Recorded No 08/18/2022 No 08/18/2022 No 08/18/2022 Reliable internet access at home? Not on file 08/18/2022 Device with a working camera? Not on file Comments Unknown Sex and Gender Information Value Date Recorded Sex Assigned at Not on file Legal Sex Female 11:50 AM EST Gender Identity Not on file Sexual Orientation Not on file Plan of Treatment Health Maintenance Due Date Last Done Comments Adult Td,Tdap Booster 1990 DEPRESSION SCREENING 2002 SMOKING Hx and SMOKELESS TOBACCO SCREENING 2003 HEPATITIS C SCREENING 2008 HIV ONE-TIME SCREENING (18-6 5 YEARS) 2008 COVID-19 VACCINE (3 2023-2 5 season) 2023 09/22/2020, 08/31/2020 PAP SMEAR 09/11/2027 09/10/2024 HEPATITIS A VACCINES Aged Out No long er eligible based on patient's age to complete this topic HIB VACCINES Aged Out No longer eligi ble based on patient's age to complete this topic MENINGOCOCCAL VACCINES (ACWY) Aged Out No longer eligible based on patient's age to complete this topic MENINGOCOCCAL VACCINES (B) Aged Out N o longer eligible based on patient's age to complete this topic PNEUMOCOCCAL VACCINES (0-49 years) Aged Out No longer eligible b ased on patient's age to complete this topic Medical Devices Not on file Procedures Procedure Name Priority Date/Time Associated Diagnosis Comments PAP TEST Routine 09/10/2024 12:00 AM EDT from Last 3 Months Results * Pap Test (09/10/2024 12:00 AM EDT) 09/10/2024 09/13/2024 9:1 4 AM EDT Narrative SEE NARRATIVE - 09/21/2024 10:09 PM EDT [address] [address] Sub Arc Operator: Yuriy Vera MD TRANSPORTATION SERVICES REPRESENTATIVE Cytology Report FINAL DIAGNOSIS A. PAP SMEAR (THIN PREP) CE: SPECIMEN ADEQUACY: Satisfactory for evaluation; transformation zone present. INTERPRETATION: NEGATIVE FOR INTRAEPITHELIAL LESION OR MALIGNANCY. This specimen was analyzed by the automated ThinPrep Imaging System ([employer].) and the selected duncan were reviewed by a wind technician. Electronically Signed Out By: LAN Montague(ASCP) LAN Rivers(ASCP) The Pap test is a screening test primarily for squamous cancers and precursors and has associated false-negative and false-positive results. New technologies such as liquid-based preparations may decrease but will not eliminate all false-negative results. Regular sampling and follow-up of unexplained clinical signs and symptoms are recommended to minimize false negative results. CLINICAL HISTORY Date of Last Menstrual Period: 08-25-2024 Other Clinical Conditions: Screening Pap SPECIMEN SOURCE A: PAP SMEAR (THIN PREP) CE Patient Name: GLORIA BABB : 1990 (Age: 34) Sex: F Institution: [facility] Location: [facility] Date of Collection: 09/10/2024 Date of Reported: 09/21/2024 22:09 Results to: Emma Kitchen us Emma Kitchen CYTOLOGY ORDERABLES Final Re sult SEE NARRATIVE from Last [address] [place] [address] [address] [facility] [place] [address] [place] [address] [place] [address] [place] [address] [place] [address] [address] [facility] DIRECT [address] [place] [id number] [place] [address] ACO Member Subscriber Plan / Payer (Ef fective 2021-Present) Name:Gloria Babb Relation to Subscriber:Self Name:Gloria Babb Payer ID:[id number] Group ID:[id number] Type:Medicaid Address: [address] [employer] ACO Member Subscriber Plan / Payer (Ef fective 2021-Present) Name:Gloria Babb Relation to Subscriber:Self Name:Gloria Babb Payer ID:[id number] Group ID:[id number] Type:Medicaid Address: [address] [employer] [place] [place] [address] ACO [facility] Care Teams Equity Research Associate Relationship Specialty Start Date End Date Pcp, Unknown PCP - General 02/12/21 Additional Source Comments The information contained in this document represents components of the legal health record. It is not the complete legal health record.[facility]
--- NOTE | 2024-11-03 10:03 | ED_ITS ---
HPI - General Adult General Chief complaint: General Medical Stated complaint: Covid? chills, throat pain, headache Time Seen by Provider: 11/03/24 09:07 Source: patient and RN notes reviewed Mode of arrival: ambulatory Limitations: no limitations History of Present Illness ED Provider: Rosina Meadows PA-C HPI narrative: This is a 34-year-old female who presents emergency department with concerns of cough, congestion, sore throat, body aches Related Data Previous Rx's ?Medication ?Instructions ?Recorded sucralfate 1 gram tablet 1 g PO TID 90 days #270 tabs 07/27/21 polyethylene glycol 3350 17 gram 17 g PO DAILY #100 ea 08/15/21 oral powder packet (Miralax) esomeprazole magnesium 40 mg 40 mg PO DAILY #90 caps 0 12/07/21 capsule,delayed release (Nexium) sennosides 8.6 mg tablet (Natural 17.2 mg (2 x 8.6 mg) PO BEDTIME 12/07/21 Senna Laxative) constipation #180 tabs cholecalciferol (vitamin D3) 125 125 mcg PO DAILY #90 caps 06/19/22 mcg (5,000 unit) capsule cyanocobalamin (vitamin B-12) 500 500 mcg PO DAILY #90 tabs 06/19/22 mcg tablet iron,carbonyl 65 mg-vitamin C 125 1 tab PO DAILY #90 t abs 06/19/22 mg tablet,delayed release (Vitron-C) vitamin A palmitate 3,000 mcg 3,000 mcg PO DAILY #30 t abs 06/27/22 (10,000 unit) tablet thiamine HCl (vitamin B1) 100 mg 100 mg PO DAILY #90 t abs 09/12/22 tablet amoxicillin 875 mg-potassium 1 tab PO Q12H 10 days #20 tabs 01/20/24 clavulanate 125 mg tablet naproxen 500 mg tablet 500 mg PO BID PRN pain 7 day s #14 01/20/24 tabs polyethylene glycol 3350 17 17 g PO DAILY #119 grams 0 04/02/24 gram/dose oral powder (Miralax) sennosides 8.6 mg capsule (senna) 8.6 mg PO BEDTIME TN N constipation 04/02/24 #30 caps azithromycin 250 mg tablet See Rx Instructions PO .COM PLEX #6 05/12/24 (Zithromax Z-Aydin) tabs oseltamivir 75 mg capsule (Tamiflu) 75 mg PO BID 5 day s #10 caps 05/12/24 Allergies Allergy/AdvReac Type Severity Reaction Status Date / Time No Known Allergies (No Known Allergy Verified 11/03/24 08:55 Allergies*) Review of Systems Review of Systems: Yes all other systems are reviewed and are negative Constitutional: Constitutional: Reports as per [facility] Past Medical History Medical History Sleep apnea GERD (gastroesophageal reflux disease) Annual physical exam High cholesterol History of gastrectomy Surgical History Hx of wisdom tooth extraction History of esophagogastroduodenoscopy History of sleeve gastrectomy Family History Family History Mother HTN (hypertension) Father Cancer Heart problem Diabetes Social History Social History 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:: , 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, 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 Housing: Apartment Alcohol intake: current Alcohol intake frequency: holidays/special occasions only Alcohol type: wine Patient Tobacco Use Status: Never used Tobacco Smoked in Last 30 Days: No e-Cigarette/Vaping Use: Currently Using Advance Directives: No Advance Directives Information Provided: Yes Do you have a plan to hurt others: No Plan Current occupational status: employed Cognitive needs: No Hearing needs: No Vision needs: Yes Physical Exam ED Vital Signs: Vital Signs - 24 hr 11/03/24 08:55 11/03/24 10:34 Temperature 98.1 F 98.1 F Pulse Rate 80 80 Respiratory Rate 16 16 Blood Pressure 103/51 L 103/51 L Pulse Oximetry 98 98 Oxygen Delivery Method Room Air Room Air BMI result Body Mass Index 33.7 Const General: cooperative, comfortable and no acute distress Orientation/consciousness: patient oriented x3 Limitations: no limitations HENMT Other: Oropharynx widely patent, no posterior oropharyngeal erythema, no tonsillar edema or exudates, speaking in full sentences under no acute distress. Head: Yes normal to inspection, Yes normocephalic and Yes atraumatic Ears: hearing grossly normal bilaterally and TM's normal bilaterally General nose exam: Normal external nose present Face and sinus: Yes normal facial exam Mouth: Normal oral and palatal mucosa present, oropharynx normal and moist mucous membranes Throat: Yes posterior oropharynx normal Eyes General: appearance normal, both eyes and all related structures Eyelids: Yes eyelids normal Conjunctivae: conjunctivae normal Sclerae: sclerae normal Pupils: Equal, round and reactive pupils present EOM: EOMs intact bilaterally Neck Neck: Yes normal visual inspection, Yes full ROM and Yes no lymphadenopathy Lymphatic: no lymphadenopathy noted Chest Chest palpation & inspection: normal inspection of the chest Resp Effort & Inspection: normal respiratory effort and able to speak in complete sentences Auscultation: clear to auscultation bilaterally, no crackles, no rales, no rhonchi and no wheezes Cardio Rate: regular rate Rhythm: regular rhythm Heart sounds: S1 normal heart sound present and S2 normal heart sound present GI Inspection: Yes normal to inspection Skin General skin exam: no rashes or lesions noted Trauma: no lacerations or abrasions Wounds: no wounds Neuro General: patient oriented x3 and moves all extremities Cranial nerves: Yes Equal, round and reactive pupils present Extrem General: Yes normal to inspection Right upper extremity: normal to inspection Left upper extremity: normal to inspection Right lower extremity: normal to inspection Left lower extremity: normal to inspection Medications Administered Discontinued Medications Generic Name Dose Route Start Last Admin Trade Name Freq PRN Reason Stop Dose Admin Acetaminophen 975 mg 11/03/24 09:19 11/03/24 09:23 Acetaminophen 325 Mg Tablet PO 11/03/24 09:20 975 mg ONCE ONE Administration Medical Decision Making Medical Decision Making [facility] Narrative: This is a 34-year-old female who presents emergency department with concerns of cough, congestion, sore throat, body aches which started yesterday. Patient reports positive exposure to COVID. On arrival, vital signs stable, she is speaking full sentences under no acute distress. Lungs are clear to auscultation bilaterally, oropharynx is unremarkable. Differential diagnoses include flu, RSV, COVID, strep, viral URI. We will obtain viral swabs and strep swab. Course: Viral swabs negative, discussed findings with patient. Will treat conservatively with ibuprofen and Tylenol, given strict return precautions. She understands and agrees with plan. Patient stable for discharge. Differential Diagnosis Differential Diagnoses: The differential diagnosis associated with the presentation includes See above Lab Data [facility] Lab Attestation statement: I reviewed the patient's lab results. See above Labs: Lab Results 11/03/24 Range/Units 09:03 Influenza Type A (PCR) NEGATIVE (Negative) Influenza Type B (PCR) NEGATIVE (Negative) RSV RNA Qual (PCR) NEGATIVE (Negative) SARS-CoV-2 RNA (RT-PCR) NEGATIVE (Negative) S. pyogenes GrpA GIL Negative (Negative) Discharge Plan Discharge Clinical Impression: Viral upper respiratory infection Patient Disposition: Home, Self-Care Instructions: Upper Respiratory Infection (ED) Additional Instructions: You were seen in the emergency department today, you tested negative for COVID, flu, RSV and strep. You likely have a virus that is causing you to have these symptoms. It may also be too early for you to test positive for COVID. This is a do sell COVID test [id number] at any pharmacy therefore if you want to retest you can pickler helper a test at the pharmacy. Again if you do test positive, this is still a virus and is treated the same way as any other virus. Please drink plenty of fluids, get plenty of rest, alternate between ibuprofen and or Tylenol as needed for pain and symptoms. Saltwater gargles, popsicles, and lots of fluids will help get over your symptoms sooner. If any new or worsening symptoms occur including but not limited to severe chest pain, shortness of breath, please seek emergent care. Prescriptions: No Action sucralfate 1 gram tablet 1 g PO TID 90 Days Qty: 270 1RF Vitron-C 65 mg iron- 125 mg tablet,delayed release (DR/EC) 1 tab PO DAILY Qty: 90 0RF Rx Instructions: swallow whole; do not chew/break/dissolve/open cholecalciferol (vitamin D3) 125 mcg (5,000 unit) capsule 125 mcg PO DAILY Qty: 90 0RF cyanocobalamin (vitamin B-12) 500 mcg tablet 500 mcg PO DAILY Qty: 90 0RF vitamin A palmitate 3,000 mcg (10,000 unit) tablet 3,000 mcg PO DAILY Qty: 30 1RF thiamine HCl (vitamin B1) 100 mg tablet 100 mg PO DAILY Qty: 90 0RF naproxen 500 mg tablet 500 mg PO BID PRN (Reason: pain) 7 Days Qty: 14 0RF amoxicillin-pot clavulanate 875-125 mg tablet 1 tab PO Q12H 10 Days Qty: 20 0RF azithromycin [Zithromax Z-Aydin] 250 mg tablet See Rx Instructions .ROUTE .COMPLEX Qty: 6 0RF Rx Instructions: For 250 mg dose pack: take 500 mg today (day 1), then 250 mg for 4 days (days 2-5) oseltamivir [Tamiflu] 75 mg capsule 75 mg PO BID 5 Days Qty: 10 0RF polyethylene glycol 3350 [Miralax] 17 gram/dose powder 17 g PO DAILY Qty: 119 0RF senna 8.6 mg capsule 8.6 mg PO BEDTIME PRN (Reason: constipation) Qty: 30 0RF sennosides [Natural Senna Laxative] 8.6 mg tablet 17.2 mg PO BEDTIME Qty: 180 4RF esomeprazole magnesium [Nexium] 40 mg capsule,delayed release(DR/EC) 40 mg PO DAILY Qty: 90 5RF polyethylene glycol 3350 [Miralax] 17 gram powder in packet 17 g PO DAILY Qty: 100 3RF Stand Alone Forms: Work/School Release Interventions: ED Discharge Assessment Last Done: 11/03/24 10:34 Discharge Date/Time: 11/03/24 10:35 Print Language: Sinhala
[2024-11-03 10:34] VITALS: BP 103/51; PULSE 80; RESP 16; TEMP 36.7; O2SAT 98
== END 2024-11-03 10:35 | disposition home or self-care (01) ==
PROVIDERS: Emergency Provider Emergency Medicine
DX: J06.9 Acute upper respiratory infection, unspecified (principal); Z03.818 Encounter for observation for suspected exposure to other biological agents ruled out
CPT/HCPCS: 87637; 87651; 99283; 99284

== ENCOUNTER 2024-12-13 10:34 | Outpatient (AMB) | payer OTHER, SELFPAY ==
--- NOTE | 2024-12-13 10:36 | MHC.OFFVIS ---
Vital Signs 12/13/24 10:41 Height 5 ft 1 in Weight 179 lb BMI 33.8 BP 108/54 L Blood Pressure Location Lt brachial Position Sitting Pulse 76 Pulse Source Pulse Oximeter Pulse Oximetry (%) 98 Oxygen Delivery Method Room Air Intake Visit Reasons: GERD + CIC mgmt. ARYA 2022. Intake Note: Est pt for mgmt of GERD + CIC. ARYA 2022. CC; C.O. exacerbation of GERD + Constipation. Pt states that she notices her GERD is at its worst when she has been constipation for ~ 4-5 days and has not had a BM. No longer taking any GI meds with the exception of Miralax. 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 ARYA 2022.: Details: LAST VISIT GERD (gastroesophageal reflux disease) Continue current dose of Nexium every morning half an hour before breakfast. Continue growth phase. Patient was encouraged to avoid dietary triggers and late night snacking. Staying upright for minimal 3 hours after meals discussed with patient IBS (irritable bowel syndrome) Occasional bloating postprandially. Patient was encouraged to eat smaller meals. History of gastric sleeve done in [place] 2015. Patient will be going for revision. Trying to lose weight before going for the procedure. Patient was instructed to avoid dietary triggers. Low FODMAP diet discussed with her. I will see her in 6 months, sooner on as needed basis. Patient is agreeable to this plan and verbalizes understanding of instructions. She was given the opportunity to ask questions and all questions answered. ? TODAY'S VISIT: Patient is here today for requested visit. Patient reports that she continues to have epigastric pain postprandially. Patient also reports a epigastric pain even when she drinks water. Patient is not moving her bowels well. Tried Senokot and Dulcolax in the past as well as MiraLax without any good results. Bowel movements every 3-4 days. Patient reports dyspepsia without dysphagia or odynophagia. Currently patient is not taking any PPIs. Patient states that Nexium and sucralfate work for her in the past. As mentioned above patient had gastric sleeve, followed up with bariatric services, decided not to continue. Patient is trying to lose weight on her own. Since last visit she lost about 15-17 lb. Patient reports that her weight fluctuates between 3-4 lb within a week. Patient denies melena, hematochezia, unintentional weight loss or ribbon like stools. 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 Alcohol intake: current Alcohol intake frequency: holidays/special occasions only Alcohol type: wine Patient Tobacco Use Status: Never used Tobacco e-Cigarette/Vaping Use: Currently Using Current occupational status: employed Cognitive needs: No Hearing needs: No Vision needs: Yes Review of Systems Const Denies weight gain and Denies weight loss ENT Reports no additional complaints, Denies dysphagia and Denies odynophagia Card Reports no additional complaints Resp Reports no additional complaints GI Denies abdominal pain, Denies belching, Denies melena, Denies bloating, Denies change in bowel habits, Denies dysphagia, Denies excessive flatus, Denies dyspepsia, Denies heartburn, Denies diarrhea, Denies loose stools, Denies nausea, Denies odynophagia and Denies vomiting Musc Reports no additional complaints Neuro Reports no additional complaints Psych Reports no additional complaints Endo Reports no additional complaints Physical Exam Vital Signs: Last Vital Signs Pulse 76 12/13/24 10:41 BP 108/54 L 12/13/24 10:41 Pulse Ox 98 12/13/24 10:41 Oxygen Delivery Method Room Air 12/13/24 10:41 BMI result Body Mass Index 33.8 Const General: healthy appearing, no acute distress and well developed Nutritional Appearance: well nourished Orientation/consciousness: patient oriented x3 Resp Effort & Inspection: normal respiratory effort, able to speak in complete sentences, no tracheal deviation and symmetric chest movement Auscultation: clear to auscultation bilaterally Cardio Rate: regular rate GI Inspection: Yes normal to inspection and No distended Palpation (GI): Soft to palpation, not firm, nontender and No hepatosplenomegaly present Auscultation: normal bowel sounds General: Yes no CVA tenderness Back/Spine/Pelvis Back: no CVA tenderness Skin General skin exam: elasticity normal, turgor normal and dry skin Neuro General: patient oriented x3 Psych Appearance: grossly normal Mental Status: mental status grossly normal Assessment & Plan Assessment & Plan (1) S/P laparoscopic sleeve gastrectomy: Code(s): Z98.84 - Bariatric surgery status Category: Surgical (2) GERD (gastroesophageal reflux disease): Code(s): K21.9 - Gastro-esophageal reflux disease without esophagitis Category: Medical Qualifiers: Esophagitis presence: esophagitis presence not specified Qualified Code(s): K21.9 - Gastro-esophageal reflux disease without esophagitis (3) Constipation: Code(s): K59.00 - Constipation, unspecified Qualifiers: Constipation type: slow transit constipation Qualified Code(s): K59.01 - Slow transit constipation (4) Postprandial epigastric pain: Code(s): R10.13 - Epigastric pain Plan Patient will start taking Nexium and sucralfate. Will start her on Motegrity. This will be better choice for her then Linzess or Trulance. Increase fluid intake and activity to promote better bowel motility. Patient will avoid dietary triggers and late night snacking. Discussed with her the importance of staying upright for minimum 3 hours after meals. Patient will follow-up in 3-4 months, sooner on as needed basis. She is agreeable to this plan and verbalizes understanding of instructions. She was given the opportunity to ask questions and all questions answered. Thank you for allowing me to participate in her care Medications: New prucalopride (Motegrity) 2 mg PO DAILY 30 tabs 3RF K59.04 - Chronic idiopathic constipation esomeprazole magnesium (Nexium) 40 mg PO DAILY 30 caps 3RF K21.9 - Gastro-esophageal reflux disease without esophagitis sucralfate 1 g PO BEDTIME 30 tabs 4RF R19.7 - Diarrhea, unspecified Coding Level of Care Code Est Pt Level 4 (98680) Complex EM visit Add On G2211 Diagnoses S/P laparoscopic sleeve gastrectomy Z98.84 Gastroesophageal reflux disease, unspecified whether esophagitis present K21.9 Esophagitis presence: esophagitis presence not specified Slow transit constipation K59.01 Constipation type: slow transit constipation Postprandial epigastric pain R10.13 Time Spent (min) 40 Comment 25 minutes spent with patient and additional 15 minutes spent reviewing her records
[2024-12-13 10:41] VITALS: BP 108/54; PULSE 76; O2SAT 98; BMI 33.8
--- OUTSIDE RECORDS SUMMARY | 2024-12-13 12:58 | XMS_ITS | Clinical Summary ---
Author Organization [facility] Address [address] [place] [id number] Phone Care Team Providers Care Can Cutter Name Role Phone Pcp, Unknown Primary Care Provider Unavailabl e Immunizations Immunization Administration Dates Next Due COVID-19 [...] HIV ONE-TIME SCREENING (18-6 5 YEARS) 2008 INFLUENZA VACCINE (#1) 2024 02/05/2021 COVID-19 VACCINE (2024-2 6 season) 2024 09/22/2020, 08/31/2020 PAP SMEAR 09/11/2027 09/10/2024 HEPATITIS [...] 12:00 AM EDT from Last 3 Months or Most Recently Relevant to Health Maintenance Results * Pap Test (09/10/2024 12:00 AM EDT) 09/10/2024 09/13/2024 9:1 4 AM EDT Narrative SEE NARRATIVE - 09/21/2024 10:09 PM EDT [address] [address] Master Data Analyst: Yuriy Vera MD ENTOMOLOGY TEACHER Cytology Report FINAL DIAGNOSIS A. PAP SMEAR (THIN PREP) CE: SPECIMEN ADEQUACY: Satisfactory for evaluation; transformation zone present. INTERPRETATION: NEGATIVE FOR INTRAEPITHELIAL LESION OR MALIGNANCY. This specimen was analyzed by the automated ThinPrep Imaging System ([facility].) and the selected duncan were reviewed by a bilingual sales representative. Electronically Signed Out By: LAN Montague(ASCP) LAN [...] : 1990 (Age: 34) Sex: F Institution: [facility] Location: [facility] Date of Collection: 09/10/2024 Date of Reported: 09/21/2024 22:09 Results to: Emma Kitchen Emma Kitchen CYTOLOGY ORDERABLES Final Re sult SEE NARRATIVE from Last 3 Months or Most Recently Relevant to Health Maintenance Insurance [employer]CO Member Subscriber Plan / Payer (Ef fective 2021-Present) Name:Gloria Babb Relation to Subscriber:Self Name:Gloria Babb Payer ID:[id number] Group ID:[id number] Type:Medicaid Address: [address] [facility] [place] [address] [facility] [facility] [address] [place] [address] [address] [place] [address] [facility] [address] [place] [address] [place] [address] [place] [id number] [facility] [place] [address] A[facility] DIRECT Care Teams Can Cutter Relationship Specialty Start Date End Date Pcp, Unknown PCP - General 02/12/21 Additional Source Comments The information contained in this document represents components of the legal health record. It is not the complete legal health record.[facility]
== END 2024-12-13 11:11 | disposition home or self-care (01) ==
LOC: HO.HGI 10:35
PROVIDERS: Visit Provider Nurse Practitioner Family
DX: Z98.84 Bariatric surgery status (principal); K21.9 Gastro-esophageal reflux disease without esophagitis; K59.01 Slow transit constipation; R10.13 Epigastric pain
CPT/HCPCS: 99214

== ENCOUNTER → 2024-12-13 10:34 | Outpatient (BNVA) | payer OTHER, SELFPAY | PROVIDERS: Visit Provider Nurse Practitioner Family | DX: K21.9 Gastro-esophageal reflux disease without esophagitis (principal); K59.01 Slow transit constipation; Z98.84 Bariatric surgery status; R10.13 Epigastric pain | CPT/HCPCS: 99212 ==